=== PATIENT | female | born 1950 | race Hispanic/Latino ===

== ENCOUNTER 2018-06-14 20:41 | Emergency (ER) | payer MEDICARE ==
[~2018-06-14] VITALS: Ht 144.8 cm; Wt 78.5 kg
[2018-06-14] MEDS ORDERED: TYLENOL WITH C1 EACH PO (21:18)
[2018-06-14] MEDS ORDERED: ZESTRIL40 MG PO (21:18)
[2018-06-14] MEDS ORDERED: LEVOTHYROXINE75 MCG PO (21:18)
[2018-06-14] MEDS ORDERED: NAPROXEN250 MG PO (21:18)
[2018-06-14] MEDS ORDERED: MECLIZINE HCL12.5 MG PO (21:18)
[2018-06-14] MEDS ORDERED: SODIUM CHLORIDE 0.9% 1000ML 1,000 ML IV STA (21:27)
[2018-06-14] MEDS ORDERED: ONDANSETRON HCL INJ 2 MG/ML VIAL IV STA (21:27)
[2018-06-14] MEDS ORDERED: MECLIZINE HCL 12.5 MG TAB PO ONE (21:30)
[2018-06-14 21:52] LABS: BASOPHILS # (AUTO) 0.1 (0.0-0.1); BASOPHILS % 0.5 % (0.0-1.0); EOSINOPHILS # (AUTO) 0.1 (0.0-0.4); EOSINOPHILS % 0.7 % (0.0-6.0); HEMATOCRIT 40.5 % (34.2-44.1); HEMOGLOBIN 13.9 g/dL (12.0-16.0); LYMPHOCYTES # (AUTO) 1.4 (1.0-3.2); LYMPHOCYTES % 12.2 % (18.0-39.1); MEAN CORPUSCULAR HEMOGLOBIN 28.7 pg (28-32); MEAN CORPUSCULAR HGB CONC 34.3 g/dL (31-35); MEAN CORPUSCULAR VOLUME 83.7 fL (81-99); MONOCYTES # (AUTO) 0.5 (0.2-0.8); MONOCYTES % 4.2 % (4.4-11.3); NEUTROPHILS # (AUTO) 9.1 (2.1-6.9); NEUTROPHILS % 81.9 % (38.7-80.0); PLATELET COUNT 333 x10e3/uL (140-360); RED BLOOD COUNT 4.84 x10e6/uL (3.6-5.1); RED CELL DISTRIBUTION WIDTH 12.8 % (11.7-14.4)
[2018-06-14 22:05] LABS: CLARITY,URINE CLEAR (CLEAR); COLOR,URINE YELLOW (YELLOW); LEUKOCYTE ESTERASE ,URINE NEGATIVE (NEGATIVE)
[2018-06-14 22:06] LABS: BILIRUBIN,URINE NEGATIVE (NEGATIVE); KETONES,URINE TRACE (NEGATIVE); NITRITE,URINE NEGATIVE (NEGATIVE); PROTEIN,URINE DIPSTICK 2+ (NEGATIVE); URINE UROBILINOGEN 0.2 mg/dL (0.2 - 1)
[2018-06-14 22:06] LABS: ALANINE AMINOTRANSFERASE 21 IU/L (0-55); ALBUMIN 4.1 g/dL (3.5-5.0); ALKALINE PHOSPHATASE 84 IU/L (40-150); ANION GAP 13.2 mmol/L (8-16); BLOOD UREA NITROGEN 10 mg/dL (7-26); BUN/CREATININE RATIO 16 (6-25); CALCIUM 10.8 mg/dL (8.4-10.2); CARBON DIOXIDE 29 mmol/L (22-29); CHLORIDE 103 mmol/L (98-107); CREATININE, SERUM 0.63 mg/dL (0.57-1.11); EST GLOMERULAR FILTRATION RATE > 60 ML/MIN (60-); GLUCOSE 132 mg/dL (74-118); MAGNESIUM 1.8 MG/DL (1.3-2.1); POTASSIUM 4.2 mmol/L (3.5-5.1); SODIUM 141 mmol/L (136-145)
[2018-06-14 22:15] LABS: BACTERIA,URINE MANY /HPF; RBC,URINE 0-5 /HPF (0-5)
[2018-06-14 22:16] LABS: EPITHELIAL CELLS,URINE MODERATE /LPF; MUCUS,URINE MANY (RARE)
--- NOTE | 2018-06-14 23:01 | Diagnostic Imaging Report ---
Examination: CT head without contrast Clinical Indication: Dizziness; nausea. Technique: Transaxial noncontrast images from the skull base through the vertex were obtained. Sagittal and coronal reformatted images were done. Dose modulation, iterative reconstruction, and/or weight based adjustment of the mA/kV was utilized to reduce the radiation dose to as low as reasonably achievable. Comparison: None. Findings: Scalp: No abnormalities. Bones: Intact. No fractures. No blastic or lytic lesions. Brain sulci: Appropriate for patient's age. Ventricles: Normal in size and configuration. No hydrocephalus. Extra-axial space: No abnormalities. Parenchyma: No abnormal densities. No masses, hemorrhage, or acute or chronic cortical based vascular insults. Suprasellar region: No abnormalities. Craniocervical junction: The foramen magnum is patent. No Chiari one malformation. Incidental findings: Near complete opacification of the partially visualized bilateral maxillary sinuses Complete opacification do the bilateral ethmoid air cells and bilateral frontal and right sphenoid sinuses. Partially opacified left sphenoid sinus. Impression: 1. No acute intracranial abnormality. 2. Bilateral paranasal sinus inflammatory changes, as above. Signed by: Dr. Florence Dai M.D. on 06/14/2018 10:57 PM
== END 2018-06-14 23:39 | disposition home or self-care (01) ==
LOC: ER 20:41
DX: H81.10 Benign paroxysmal vertigo, unspecified ear (principal); R42 Dizziness and giddiness
CPT/HCPCS: 36415; 70450; 80053; 81001; 83735; 85025; 87086; 99284; J2405; J7030

== ENCOUNTER 2018-06-17 20:53 | Emergency (ER) | payer MEDICARE ==
[~2018-06-17] VITALS: Ht 144.8 cm; Wt 78.5 kg
[~2018-06-17 20:53] MED LIST: LEVOTHYROXINE75 MCG PO; MECLIZINE HCL12.5 MG PO; NAPROXEN250 MG PO; TYLENOL WITH C1 EACH PO; ZESTRIL40 MG PO
--- OUTSIDE RECORDS SUMMARY | 2018-06-22 13:14 | XMS REPORT ---
Author Author [facility] Address Unknown Phone Unavailable Care Team Providers Care Delphi Programmer Name Role Phone Luzma MUSTAFA Unavailable Unavailable Problems This patient has no known problems. Allergies, Adverse Reactions, Alerts This patient has no known allergies or adverse reactions. Medications This patient has no known medications. Encounters Start Date/Time End Date/Time Encounter Type Admission Type Attending [facility] Care Facility Care Department Encounter ID 2017-11-27 01:17:33 2017-11-27 01:17:33 Emergency [facility] [id number] 2017-11-27 00:09:59 2017-11-27 00:09:59 Emergency [facility] [id number] 2017-07-18 16:24:34 2017-07-18 16:24:34 Outpatient [facility] [id number] Results Test Description Test Time Test Comments Text Results Atomic Results Result Comments CT BRAIN WO 2018-06-14 22:49:00 [place] [address] Patient Name: RADHA TAN MR #: [id number] : 1950 Age/Sex: 67/F Req #: [id number] Adm Physician: Ordered by: PAULETTE MUSTAFA MD Report #: [id number] Location: ER Room/Bed: Procedure: [id number] CT/CT BRAIN WO Exam Date: 06/14/18 Exam Time: 2213 REPORT STATUS: Signed Examination: CT head without contrast Clinical Indication: Dizziness; nausea. Technique: Transaxial noncontrast images from the skull base through the vertex were obtained. Sagittal and coronal reformatted images were done. Dose modulation, iterative reconstruction, and/or weight based adjustment of the mA/kV was utilized to reduce the radiation dose to as low as reasonably achievable. Comparison: None. Findings: Scalp: No abnormalities. Bones: Intact. No fractures. No blastic or lytic lesions. Brain sulci: Appropriate for patient's age. Ventricles: Normal in size and configuration. No hydrocephalus. Extra-axial space: No abnormalities. Parenchyma: No abnormal densities. No masses, hemorrhage, or acute or chronic cortical based vascular insults. Suprasellar region: No abnormalities. Craniocervical junction: The foramen magnum is patent. No Chiari one malformation. Incidental findings: Near complete opacification of the partially visualized bilateral maxillary sinuses Complete opacification do the bilateral ethmoid air cells and bilateral frontal and right sphenoid sinuses. Partially opacified left sphenoid sinus. Impression: 1. No acute intracranial abnormality. 2. Bilateral paranasal sinus inflammatory changes, as above. Signed by: Dr. Florence Dai M.D. on 06/14/2018 10:57 PM Dictated By: FLORENCE BAUTISTA MD 56 Transcribed By: KELI on 06/14/182256 COPY TO: PAULETTE MUSTAFA MD
--- OUTSIDE RECORDS SUMMARY | 2018-06-22 13:14 | XMS REPORT | Clinical Summary ---
Author Author [facility] Organization [facility] Address Unknown Phone Unavailable Care Team Providers Care Screening Nurse Name Role Phone PCP Unavailable Allergies Active Allergy Reactions Severity Noted Date Comments No Known Allergies 01/20/2013 Current Medications Prescription Sig. Disp. Refills Start End Date Status Date sodium chloride (SALINE Use 2 Sprays in each 30 mL 5 12/09/19 Active NASAL SPRAY) 0.65 % nasal nostril as needed for 14 sprayIndications: Nasal Congestion. polyp, History of sinus surgery, Nasal congestion famotidine (PEPCID) 20 mg Take 1 tablet by mouth 2 60 tablet 3 05/02/20 Active tabletIndications: times daily. 14 Abdominal pain levothyroxine (SYNTHROID) Take 1 tablet by mouth 90 tablet 1 05/02/20 Active 75 mcg tabletIndications: daily. 14 Hypothyroidism Mometasone 50 Inhale 2 rocios por cada 17 g 3 05/26/20 Active mcg/actuation nasal fosa nasal vipul vez al dixon 14 sprayIndications: Nasal si lo necesita para polyp, Post-nasal drip, congestion nasal. Autosub Nasal obstruction, per Dr. Gloria Chronic sinusitis codeine-guaiFENesin Take 5 mL by mouth 3 120 mL 0 09/16/19 Active (CHERATUSSIN AC) 10-100 times daily as needed for 15 mg/5 mL syrupIndications: Cough. Acute bronchitis cetirizine (ZYRTEC) 10 mg Take 1 tablet by mouth 30 tablet 0 07/18/20 Active tabletIndications: daily. 17 Allergic conjunctivitis of left eye Naphazoline-Pheniramine Instill 1 Drop in left 15 mL 0 07/18/20 07/28/20 (NAPHCON-A) 0.025-0.3 % eye 4 times daily as 17 17 ophthalmic needed for up to 10 days solutionIndications: for Allergies or Itching. Allergic conjunctivitis of left eye Active Problems Problem Noted Date Fatigue 11/27/2017 Chronic non-seasonal allergic rhinitis 07/18/2017 Obesity, Class I, BMI 30-34.9 07/18/2017 Atypical facial pain 05/25/2013 Nasal polyps 05/25/2013 Nasal obstruction 05/25/2013 Chronic sinusitis 05/25/2013 Rectal exam 03/03/2013 Hypothyroidism Hypertension Resolved Problems Problem Noted Date Resolved Date Allergic rhinitis 05/25/2013 07/18/2017 Post-nasal drip 05/25/2013 07/18/2017 Well woman exam with routine gynecological exam 03/03/2013 07/18/2017 Nasal polyp 02/03/2013 07/18/2017 Encounters Date Type Specialty Care Team Description 11/27/2017 Emergency Emergency Medicine Johan Lovelace MD Dizziness (Primary Dx); Chronic fatigue 07/18/2017 Office Visit Family Practice Juliana Lorenzo MD Allergic conjunctivitis of left eye (Primary Dx) after 06/16/2017 Immunizations Name Dates Previously Given Next Due Influenza Vaccine 07/18/2017 (Deferred: Patient Refused), 09/16/2014 (Deferred: Contraindication) Tdap Tetanus, diphtheria, 01/20/2013 acellular pertussis Vaccine Family History Medical History Relation Name Comments Unknown Fam Hx Relation Name Status Comments Father Mother Social History Tobacco Use Types Packs/Day Years Used Date Never Smoker Tobacco Cessation: Counseling Given: No Alcohol Use Drinks/Week oz/Week Comments No Sex Assigned at Date Recorded Not on file Last Filed Vital Signs Vital Sign Reading Time Taken Blood Pressure 112/68 11/27/2017 3:30 AM CDT Pulse 81 11/27/2017 3:30 AM CDT Temperature 36.6 C (97.8 F) 11/27/2017 3:30 AM CDT Respiratory Rate 22 11/27/2017 3:30 AM CDT Oxygen Saturation 97% 11/27/2017 3:30 AM CDT Inhaled Oxygen - - Concentration Weight 78.5 kg (173 lb) 11/26/2017 9:38 PM CDT Height 149.9 cm (4' 11") 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 UA CHEMISTRIES STAT 11/27/2017 Results for this 1:15 AM CDT procedure are in the results section. 12 LEAD EKG Routine 11/27/2017 Results for this 12:57 AM CDT procedure are in the results section. BMP POC Routine 11/27/2017 Results for this 12:41 AM CDT procedure are in the results section. after 06/16/2017 Results * XRAY CHEST 2 VIEWS (11/27/2017 1:25 AM) Impressions Performed At IMPRESSION:No acute cardiopulmonary abnormality. SMS This [facility] radiology report is a preliminary resident dictation until finalized by an attending.Changes to this preliminary report may occur in an additional preliminary or finalized version. Dictated By: Emmett Miller MD, 11/27/2017 1:32 AM I have reviewed the study and agree with the findings in this report. Signed By: Semaj Morrison MD, 11/27/2017 1:47 AM Narrative Performed At EXAM: XR CHEST 2 VIEWS [facility] DATE: 11/27/2017 1:27 AM INDICATION: looking for pneumonia; atypical symptoms. Chronic fatigue COMPARISON: None. TECHNIQUE: PA and lateral chest radiographs FINDINGS: Lines, tubes and hardware: None. Lungs and pleura: The lungs are underinflated, resulting in vascular crowding. There is bibasilar subsegmental atelectasis. No focal consolidations are seen. No pleural effusion or pneumothorax present. Heart and mediastinum: The heart size is normal. The mediastinal contours are normal. Bones: No acute bony abnormality is identified. Anterior endplate osteophytes are seen throughout the thoracic spine. Procedure Note Interface, Rad/Mammog In - 11/27/2017 1:52 AM CDT EXAM: XR CHEST 2 VIEWS DATE: 11/27/2017 1:27 AM INDICATION: looking for pneumonia; atypical symptoms. Chronic fatigue COMPARISON: None. TECHNIQUE: PA and lateral chest radiographs FINDINGS: Lines, tubes and hardware: None. Lungs and pleura: The lungs are underinflated, resulting in vascular crowding. There is bibasilar subsegmental atelectasis. No focal consolidations are seen. No pleural effusion or pneumothorax present. Heart and mediastinum: The heart size is normal. The mediastinal contours are normal. Bones: No acute bony abnormality is identified. Anterior endplate osteophytes are seen throughout the thoracic spine. IMPRESSION IMPRESSION: No acute cardiopulmonary abnormality. This [facility] radiology report is a preliminary resident dictation until finalized by an attending. Changes to this preliminary report may occur in an additional preliminary or finalized version. Dictated By: Emmett Miller MD, 11/27/2017 1:32 AM I have reviewed the study and agree with the findings in this report. Signed By: Semaj Morrison MD, 11/27/2017 1:47 AM Performing Organization Address City/[facility] Phone Number SMS * UA CHEMISTRIES (11/27/2017 1:15 AM) Color Yellow [facility] Clarity Clear [facility] Spec [place] 1.012 1.001 - 1.035 [facility] pH 6.0 5 - 8 [facility] Protein Negative NEG [facility] Glucose Negative NEG [facility] Ketone Negative NEG [facility] Bilirubin Negative NEG [facility] Nitrate Negative NEG [facility] Urobilinogen <1.0 0.2 - 1.0 EU/dL [facility] Leukocyte Negative NEG [facility] Blood Negative NEG [facility] Specimen Urine Performing Organization Address [facility] Phone Number MISYS [facility] * 12 LEAD EKG (11/27/2017 12:57 AM) 12 LEAD EKG FOR [facility] Test Date:2017-11-27 Pat Name: GRACIELA WHALEY Department: Room: Gender: F Managed Care Provider: [id number] :1950-1 Requested By: Order Number: [id number] MD: Robbie Cononr Measurements Intervals [place] Rate: 90 P:33 SC: 182 QRS: -20 QRSD: 101 T: 41 QT: 338 QTc:414 Interpretive Statements SINUS RHYTHM NONSPECIFIC T-WAVE ABNORMALITY POOR R WAVE PROGRESSION ABNORMAL ECG Electronically Signed On 12-01-17 17:56:46 CDT by Robbie Connor Performing Organization Address City/State/Zipcode Phone Number SMS * BMP POC (11/27/2017 12:41 AM) CO2 POC 29Comment: Physician Notified 21 - 32 mmol/L [facility] Chloride POC 100 98 - 107 mmol/L [facility] Potassium POC 3.6 3.50 - 5.10 mmol/L [facility] Sodium POC 141 136 - 145 mmol/L [facility] Glucose POC 169 (H) 74 - 106 mg/dL [facility] Urea Nitrogen POC 9 7 - 18 mg/dL [facility] Creatinine POC 0.5 (L) 0.6 - 1.3 mg/dL [facility] Calcium Ionized POC 1.19 1.15 - 1.29 mmol/L [facility] Hemoglobin POC 15.3 12.0 - 16.0 g/dL [facility] Hematocrit POC 45.0 37.0 - 47.0 % [facility] GFR, Estimated >60 mL/min/1.73 m2 [facility] GFR, Estim, Afr-Am >60 mL/min/1.73 m2 [facility] Performing Organization Address City/State/Zipcode Phone Number MISYS [facility] 1 after 06/16/2017
== END 2018-06-17 23:32 | disposition home or self-care (01) ==
LOC: ER 20:53
DX: R51 Headache (principal); J01.00 Acute maxillary sinusitis, unspecified; J01.30 Acute sphenoidal sinusitis, unspecified
CPT/HCPCS: 99282

== ENCOUNTER 2019-02-05 23:27 | Emergency (ER) | payer MEDICARE ==
[~2019-02-05] VITALS: Ht 144.8 cm; Wt 78.5 kg
[2019-02-06 01:03] LABS: BILIRUBIN,URINE NEGATIVE (NEGATIVE); CLARITY,URINE CLEAR (CLEAR); COLOR,URINE YELLOW (YELLOW); KETONES,URINE NEGATIVE (NEGATIVE); LEUKOCYTE ESTERASE ,URINE NEGATIVE (NEGATIVE); NITRITE,URINE NEGATIVE (NEGATIVE); PROTEIN,URINE DIPSTICK NEGATIVE (NEGATIVE); URINE UROBILINOGEN 0.2 mg/dL (0.2 - 1)
[2019-02-06 01:17] LABS: BACTERIA,URINE RARE /HPF; EPITHELIAL CELLS,URINE FEW /LPF; RBC,URINE 0-5 /HPF (0-5); WBC,URINE (MAN) 0-5 /HPF (0-5)
[2019-02-06 02:30] LABS: BASOPHILS # (AUTO) 0.1 (0.0-0.1); BASOPHILS % 0.5 % (0.0-1.0); EOSINOPHILS # (AUTO) 0.6 (0.0-0.4); EOSINOPHILS % 6.2 % (0.0-6.0); HEMATOCRIT 39.9 % (34.2-44.1); HEMOGLOBIN 13.4 g/dL (12.0-16.0); LYMPHOCYTES # (AUTO) 2.2 (1.0-3.2); LYMPHOCYTES % 22.8 % (18.0-39.1); MEAN CORPUSCULAR HEMOGLOBIN 28.6 pg (28-32); MEAN CORPUSCULAR HGB CONC 33.6 g/dL (31-35); MEAN CORPUSCULAR VOLUME 85.1 fL (81-99); MONOCYTES # (AUTO) 0.6 (0.2-0.8); MONOCYTES % 6.4 % (4.4-11.3); NEUTROPHILS # (AUTO) 6.2 (2.1-6.9); NEUTROPHILS % 63.8 % (38.7-80.0); PLATELET COUNT 355 x10e3/uL (140-360); RED BLOOD COUNT 4.69 x10e6/uL (3.6-5.1); RED CELL DISTRIBUTION WIDTH 12.9 % (11.7-14.4)
[2019-02-06 02:43] LABS: ANION GAP 11.8 mmol/L (8-16); BLOOD UREA NITROGEN 9 mg/dL (7-26); BUN/CREATININE RATIO 15 (6-25); CALCIUM 9.7 mg/dL (8.4-10.2); CARBON DIOXIDE 26 mmol/L (22-29); CHLORIDE 103 mmol/L (98-107); CREATINE KINASE 41 IU/L (29-168); CREATININE, SERUM 0.62 mg/dL (0.57-1.11); EST GLOMERULAR FILTRATION RATE > 60 ML/MIN (60-); GLUCOSE 99 mg/dL (74-118); POTASSIUM 3.8 mmol/L (3.5-5.1); SODIUM 137 mmol/L (136-145)
[2019-02-06 03:45] VITALS: BP 115/66
[2019-02-06] MEDS ORDERED: MECLIZINE HCL 12.5 MG TAB ONE (03:53)
[2019-02-06] MEDS ORDERED: MECLIZINE HCL 12.5 MG TAB PO ONE (04:00)
[2019-02-06 07:00] LABS: EOSINOPHILS % (MANUAL) 1 % (0-7); LYMPHOCYTES % (MANUAL) 22 % (19-48); MONOCYTES % (MANUAL) 5 % (3.4-9.0); NEUTROPHILS % (MANUAL) 70 % (40-74); PROMYELOCYTES % (MANUAL) 1 % (0-0)
== END 2019-02-06 04:00 | disposition home or self-care (01) ==
LOC: ER 23:27
DX: R42 Dizziness and giddiness (principal); I10 Essential (primary) hypertension; E11.9 Type 2 diabetes mellitus without complications; E78.00 Pure hypercholesterolemia, unspecified
CPT/HCPCS: 36415; 80048; 81001; 82550; 82553; 84484; 85025; 99283; J8597

== ENCOUNTER 2019-03-13 15:07 | Emergency (ER) | payer MEDICARE ==
[~2019-03-13] VITALS: Ht 144.8 cm; Wt 78.5 kg
[2019-03-13] MEDS ORDERED: MECLIZINE HCL 12.5 MG TAB PO ONE (16:00)
--- NOTE | 2019-03-13 16:20 | Diagnostic Imaging Report ---
History: Dizziness Comparison studies: Head CT on 06/14/2018 Technique: Axial images were obtained from the skull base to the vertex. Coronal and sagittal reconstructions obtained from the axial data. Dose modulation, iterative reconstruction, and/or weight based adjustment of the mA/kV was utilized to reduce the radiation dose to as low as reasonably achievable. Intravenous contrast: None Findings: Scalp/skull: No abnormalities. No fractures, blastic or lytic lesions. Extra-axial spaces: No masses. No fluid collections. Brain sulci: Appropriate for age. Ventricles: Normal in size and configuration. No hydrocephalus. Parenchyma: No abnormal densities. No masses, hemorrhage, acute or chronic cortical vascular insults. Sellar/suprasellar region: No abnormalities Craniocervical junction: Patent foramen magnum. No Chiari one malformation. Incidental findings: Diffuse inflammatory opacification of frontal, ethmoid and sphenoid sinuses and the apices of the maxillary sinuses. The nasofrontal and sphenoethmoidal recesses are opacified bilaterally. The ostiomeatal units are outside of the field of view. IMPRESSION: 1. No intracranial abnormalities. 2. No changes compared to the head CT on 06/14/2018 3. Persistent diffuse inflammatory changes throughout the paranasal sinuses. Signed by: Dr. Ezekiel Mckee M.D. on 03/13/2019 4:17 PM
[2019-03-13 16:54] LABS: BASOPHILS # (AUTO) 0.1 (0.0-0.1); BASOPHILS % 0.6 % (0.0-1.0); EOSINOPHILS # (AUTO) 0.6 (0.0-0.4); EOSINOPHILS % 6.3 % (0.0-6.0); HEMATOCRIT 41.8 % (34.2-44.1); LYMPHOCYTES # (AUTO) 1.8 (1.0-3.2); LYMPHOCYTES % 18.8 % (18.0-39.1); MEAN CORPUSCULAR HEMOGLOBIN 28.6 pg (28-32); MEAN CORPUSCULAR HGB CONC 33.5 g/dL (31-35); MEAN CORPUSCULAR VOLUME 85.5 fL (81-99); MONOCYTES # (AUTO) 0.6 (0.2-0.8); MONOCYTES % 6.2 % (4.4-11.3); NEUTROPHILS # (AUTO) 6.6 (2.1-6.9); NEUTROPHILS % 67.8 % (38.7-80.0); PLATELET COUNT 373 x10e3/uL (140-360); RED BLOOD COUNT 4.89 x10e6/uL (3.6-5.1); RED CELL DISTRIBUTION WIDTH 12.8 % (11.7-14.4)
[2019-03-13 17:09] LABS: ALANINE AMINOTRANSFERASE 15 IU/L (0-55); ALBUMIN 3.9 g/dL (3.5-5.0); ALBUMIN/GLOBULIN RATIO 0.9 (0.8-2.0); ALKALINE PHOSPHATASE 93 IU/L (40-150); BLOOD UREA NITROGEN 9 mg/dL (7-26); BUN/CREATININE RATIO 14 (6-25); CALCIUM 9.9 mg/dL (8.4-10.2); CARBON DIOXIDE 27 mmol/L (22-29); CHLORIDE 104 mmol/L (98-107); CREATINE KINASE 51 IU/L (29-168); CREATININE, SERUM 0.66 mg/dL (0.57-1.11); EST GLOMERULAR FILTRATION RATE > 60 ML/MIN (60-); GLUCOSE 124 mg/dL (74-118); SODIUM 141 mmol/L (136-145)
--- NOTE | 2019-03-13 17:24 | Diagnostic Imaging Report ---
EXAMINATION: CHEST SINGLE (PORTABLE) INDICATION: ^ERMD ORDER ^[id number] ^1530 ^Y COMPARISON: None FINDINGS: AP view TUBES and LINES: None. LUNGS: Lungs are well inflated. Mild reticular opacities in both lung bases suggestive of scarring. There is no evidence of pneumonia or pulmonary edema. PLEURA: No pleural effusion or pneumothorax. HEART AND MEDIASTINUM: The cardiomediastinal silhouette is unremarkable.. BONES AND SOFT TISSUES: No acute osseous lesion. Soft tissues are unremarkable. UPPER ABDOMEN: No free air under the diaphragm. IMPRESSION: No acute thoracic abnormality. Bibasilar scarring. Signed by: Dr. Angela Rowley M.D. on 03/13/2019 5:21 PM
[2019-03-13 17:54] LABS: BILIRUBIN,URINE NEGATIVE (NEGATIVE); CLARITY,URINE CLEAR (CLEAR); COLOR,URINE YELLOW (YELLOW); KETONES,URINE NEGATIVE (NEGATIVE); LEUKOCYTE ESTERASE ,URINE MODERATE (NEGATIVE); NITRITE,URINE NEGATIVE (NEGATIVE); PROTEIN,URINE DIPSTICK NEGATIVE (NEGATIVE); URINE UROBILINOGEN 0.2 mg/dL (0.2 - 1)
[2019-03-13 19:13] LABS: BACTERIA,URINE FEW /HPF; EPITHELIAL CELLS,URINE MODERATE /LPF; RBC,URINE 0-5 /HPF (0-5); WBC,URINE (MAN) 0-5 /HPF (0-5)
[2019-03-13] MEDS ORDERED: SODIUM CHLORIDE 0.9% 1000ML 1,000 ML IV SCH (20:00)
[2019-03-13 20:44] VITALS: BP 137/70
== END 2019-03-13 20:48 | disposition home or self-care (01) ==
LOC: ER 15:07
DX: H81.399 Other peripheral vertigo, unspecified ear (principal); J01.00 Acute maxillary sinusitis, unspecified; J01.20 Acute ethmoidal sinusitis, unspecified; J01.10 Acute frontal sinusitis, unspecified; J01.30 Acute sphenoidal sinusitis, unspecified; I10 Essential (primary) hypertension; E11.9 Type 2 diabetes mellitus without complications; E07.9 Disorder of thyroid, unspecified
CPT/HCPCS: 36415; 70450; 71045; 80053; 81001; 82550; 82553; 84484; 85025; 93005; 99284; J8597

== ENCOUNTER 2020-09-07 14:32 | Emergency (ER) | payer MEDICARE ==
[~2020-09-07] VITALS: Ht 144.8 cm; Wt 78.5 kg
[2020-09-07] MEDS ORDERED: ACETAMINOPHEN 325 MG TAB PO NR (15:45)
[2020-09-07] MEDS ORDERED: IBUPROFEN 600 MG TAB PO STA (17:51)
== END 2020-09-07 18:46 | disposition home or self-care (01) ==
LOC: ER 14:49
DX: U07.1 COVID-19 (principal); J18.9 Pneumonia, unspecified organism; R50.9 Fever, unspecified; R05 Cough; R53.81 Other malaise; M54.2 Cervicalgia; M54.9 Dorsalgia, unspecified; I10 Essential (primary) hypertension; E78.5 Hyperlipidemia, unspecified; E03.9 Hypothyroidism, unspecified
CPT/HCPCS: 71045; 87400; 99284; U0002

== ENCOUNTER 2020-09-12 00:08 | Inpatient (IN) | payer MEDICARE ==
[~2020-09-12] VITALS: Ht 162.6 cm; Wt 86.7 kg
[2020-09-12] MEDS ORDERED: DEXAMETHASONE SOD PHOS 10 MG/1 ML VIAL IV ONE (00:30)
[2020-09-12 00:32] LABS: BASOPHILS # (AUTO) 0.1 (0.0-0.1); BASOPHILS % 0.2 % (0.0-1.0); HEMOGLOBIN 12.2 g/dL (12.0-16.0); LYMPHOCYTES # (AUTO) 2.7 (1.0-3.2); LYMPHOCYTES % 13.6 % (18.0-39.1); MEAN CORPUSCULAR HGB CONC 33.9 g/dL (31-35); MEAN CORPUSCULAR VOLUME 82.6 fL (81-99); MONOCYTES % 4.7 % (4.4-11.3); NEUTROPHILS # (AUTO) 15.7 (2.1-6.9); PLATELET COUNT 463 x10e3/uL (140-360); RED BLOOD COUNT 4.36 x10e6/uL (3.6-5.1); RED CELL DISTRIBUTION WIDTH 12.9 % (11.7-14.4)
[2020-09-12 00:54] LABS: ALANINE AMINOTRANSFERASE 42 IU/L (0-55); ALBUMIN 2.8 g/dL (3.5-5.0); ALBUMIN/GLOBULIN RATIO 0.6 (0.8-2.0); ALKALINE PHOSPHATASE 115 IU/L (40-150); ANION GAP 24.8 mmol/L (8-16); BLOOD UREA NITROGEN 18 mg/dL (7-26); BUN/CREATININE RATIO 23 (6-25); CALCIUM 8.3 mg/dL (8.4-10.2); CARBON DIOXIDE 13 mmol/L (22-29); CHLORIDE 88 mmol/L (98-107); CREATININE, SERUM 0.79 mg/dL (0.57-1.11); EST GLOMERULAR FILTRATION RATE > 60 ML/MIN (60-); GLUCOSE 222 mg/dL (74-118); POTASSIUM 3.8 mmol/L (3.5-5.1); SODIUM 122 mmol/L (136-145)
[2020-09-12] MEDS ORDERED: CEFTRIAXONE SOD 1 GM 50 ML IV ONE ×2 (01:15→18:03)
[2020-09-12] MEDS ORDERED: AZITHROMYCIN 500MG/NS 250 ML 250 ML IV STA (01:15)
[2020-09-12] MEDS ORDERED: SODIUM CHLORIDE 0.9% 500ML 500 ML IV STA (01:19)
[2020-09-12] MEDS ORDERED: IOPAMIDOL 370 MG/ML 200 ML INFUS..BTL INJ ONE ×2 (01:36→04:15)
[2020-09-12] MEDS ORDERED: SODIUM CHLORIDE 0.9% 50ML 50 ML ONE (01:37)
[2020-09-12 02:51] LABS: ABG HCO3 20 mmol/L (22-26); ABG PCO2 30 mmHg (35-45); ABG PH 7.42 (7.35-7.45); ABG PO2 68 mmHg (80-105); ABG TCO2 21
[2020-09-12 07:25] LABS: BASOPHILS % 0.2 % (0.0-1.0); EOSINOPHILS % 0.2 % (0.0-6.0); HEMOGLOBIN 11.8 g/dL (12.0-16.0); LYMPHOCYTES # (AUTO) 1.1 (1.0-3.2); LYMPHOCYTES % 6.5 % (18.0-39.1); MEAN CORPUSCULAR HEMOGLOBIN 28.2 pg (28-32); MEAN CORPUSCULAR HGB CONC 34.7 g/dL (31-35); MEAN CORPUSCULAR VOLUME 81.3 fL (81-99); MONOCYTES # (AUTO) 0.7 (0.2-0.8); NEUTROPHILS # (AUTO) 15.3 (2.1-6.9); NEUTROPHILS % 86.8 % (38.7-80.0); PLATELET COUNT 357 x10e3/uL (140-360); RED BLOOD COUNT 4.18 x10e6/uL (3.6-5.1); RED CELL DISTRIBUTION WIDTH 12.8 % (11.7-14.4)
[2020-09-12 07:45] LABS: ALANINE AMINOTRANSFERASE 38 IU/L (0-55); ALBUMIN 2.7 g/dL (3.5-5.0); ALBUMIN/GLOBULIN RATIO 0.6 (0.8-2.0); ALKALINE PHOSPHATASE 113 IU/L (40-150); ANION GAP 14.1 mmol/L (8-16); BLOOD UREA NITROGEN 18 mg/dL (7-26); BUN/CREATININE RATIO 29 (6-25); CALCIUM 7.9 mg/dL (8.4-10.2); CARBON DIOXIDE 22 mmol/L (22-29); CHLORIDE 90 mmol/L (98-107); CREATINE KINASE 217 IU/L (29-168); CREATININE, SERUM 0.62 mg/dL (0.57-1.11); EST GLOMERULAR FILTRATION RATE > 60 ML/MIN (60-); GLUCOSE 136 mg/dL (74-118); POTASSIUM 4.1 mmol/L (3.5-5.1); SODIUM 122 mmol/L (136-145)
[2020-09-12] MEDS ORDERED: GUAIFENESIN 600MG/DEXTROMETHORPHAN 30MG TABSR PO SCH (09:00)
[2020-09-12] MEDS ORDERED: ONDANSETRON HCL INJ 2MG/ML 2ML 2 MG/ML VIAL IV PRN (18:00)
[2020-09-12] MEDS: ENOXAPARIN SOD INJ 40 MG/0.4 ML SYR SC SCH (18:25)
[2020-09-12] MEDS: CEFTRIAXONE SOD 1 GM 50 ML IV SCH (18:25)
[2020-09-12] MEDS ORDERED: REMDESIVIR 200MG/NS 100ML 200 MG in SODIUM CHLORIDE 0.9% 100 ML 100 ML IV ONE (19:30)
[2020-09-12] MEDS ORDERED: ZOLPIDEM TARTRATE 5 MG TAB PO PRN (21:00)
[2020-09-12 22:40] VITALS: BP 152/97
[2020-09-13] VITALS (24 sets, daily range): BP systolic 87–131; BP diastolic 34–93
[2020-09-13] MEDS: AZITHROMYCIN 500MG/NS 250 ML 250 ML IV SCH ×2 (00:05→23:15)
[2020-09-13] MEDS ORDERED: DEXMEDETOMIDINE HCL 200 MCG in SODIUM CHLORIDE 0.9% 50ML 48 ML IV PRN (01:00)
[2020-09-13] MEDS ORDERED: DEXMEDETOMIDINE 200MCG/NS 50ML 50 ML IV ONE (01:17)
[2020-09-13] MEDS ORDERED: FENTANYL 2000MCG/NS 250 250 ML ONE (02:15)
[2020-09-13] MEDS ORDERED: MIDAZOLAM HCL 5MG/ML 10ML VIAL 100 ML IV ONE ×2 (02:15→22:56)
[2020-09-13] MEDS ORDERED: SODIUM CHLORIDE 0.9% 1000ML 1,000 ML ONE (02:33)
[2020-09-13] MEDS ORDERED: ROCURONIUM BROMIDE 1,250 MG in SODIUM CHLORIDE 0.9% 250ML 125 ML IV PRN (03:00)
[2020-09-13 04:56] LABS: BASOPHILS % 0.2 % (0.0-1.0); HEMATOCRIT 31.7 % (34.2-44.1); HEMOGLOBIN 10.8 g/dL (12.0-16.0); LYMPHOCYTES # (AUTO) 0.6 (1.0-3.2); LYMPHOCYTES % 3.9 % (18.0-39.1); MEAN CORPUSCULAR HEMOGLOBIN 28.4 pg (28-32); MEAN CORPUSCULAR HGB CONC 34.1 g/dL (31-35); MEAN CORPUSCULAR VOLUME 83.4 fL (81-99); MONOCYTES # (AUTO) 0.7 (0.2-0.8); MONOCYTES % 4.7 % (4.4-11.3); NEUTROPHILS # (AUTO) 12.6 (2.1-6.9); NEUTROPHILS % 88.5 % (38.7-80.0); PLATELET COUNT 303 x10e3/uL (140-360); RED CELL DISTRIBUTION WIDTH 12.7 % (11.7-14.4)
[2020-09-13 05:21] LABS: ALANINE AMINOTRANSFERASE 32 IU/L (0-55); ALBUMIN 2.2 g/dL (3.5-5.0); ALBUMIN/GLOBULIN RATIO 0.6 (0.8-2.0); ALKALINE PHOSPHATASE 109 IU/L (40-150); BLOOD UREA NITROGEN 14 mg/dL (7-26); BUN/CREATININE RATIO 23 (6-25); CALCIUM 7.6 mg/dL (8.4-10.2); CARBON DIOXIDE 24 mmol/L (22-29); CHLORIDE 100 mmol/L (98-107); CREATININE, SERUM 0.62 mg/dL (0.57-1.11); EST GLOMERULAR FILTRATION RATE > 60 ML/MIN (60-); GLUCOSE 147 mg/dL (74-118); SODIUM 135 mmol/L (136-145)
[2020-09-13] MEDS: LEVOTHYROXINE SODIUM 75 MCG TAB PO SCH (06:00)
[2020-09-13] MEDS ORDERED: DEXAMETHASONE SOD PHOS 10 MG/1 ML VIAL IV SCH (09:00)
[2020-09-13] MEDS: DEXAMETHASONE SOD PHOS INJ 4 MG/ML VIAL IV SCH (09:27)
[2020-09-13] MEDS: ZINC SULFATE 220 MG CAP PO SCH (09:27)
[2020-09-13] MEDS: ASCORBIC ACID 500 MG TAB PO SCH ×2 (09:27→17:42)
[2020-09-13] MEDS: MIDAZOLAM HCL 50 MG in SODIUM CHLORIDE 0.9% 100 ML 90 ML IV PRN ×2 (12:00→23:15)
[2020-09-13] MEDS: FENTANYL CITRATE INJ 2,000 MCG in SODIUM CHLORIDE 0.9% 250ML 210 ML IV PRN (12:00)
[2020-09-13] MEDS ORDERED: VECURONIUM BROMIDE FOR INJ 20 MG VIAL ONE ×2 (15:31→17:05)
[2020-09-13 16:01] LABS: ABG HCO3 20 mmol/L (22-26); ABG PCO2 33 mmHg (35-45); ABG PH 7.39 (7.35-7.45); ABG PO2 184 mmHg (80-105); ABG TCO2 21
[2020-09-13] MEDS ORDERED: WATER STERILE 10 ML VIAL ONE (17:05)
[2020-09-13] MEDS ORDERED: ETOMIDATE 2 MG/ML 10 ML INJ IV ONE (17:05)
[2020-09-13] MEDS ORDERED: MIDAZOLAM HCL 2 MG/2 ML VIAL ONE (17:05)
[2020-09-13] MEDS ORDERED: SUCCINYLCHOLINE CHLORIDE 20 MG/ML 10ML VIAL ONE (17:05)
[2020-09-13] MEDS: ENOXAPARIN SOD INJ 40 MG/0.4 ML SYR SC SCH (17:34)
[2020-09-13] MEDS ORDERED: HEPARIN SOD/SOD CHLORIDE 1,000 ML ONE (20:04)
[2020-09-13] MEDS ORDERED: HEPARIN SOD (PORCINE) 1000 UNIT/ML SDV ONE (20:06)
[2020-09-13] MEDS: REMDESIVIR 100MG/NS 100ML 100 MG IV SCH (20:27)
[2020-09-13] MEDS: CEFTRIAXONE SOD 1 GM 50 ML IV SCH (23:15)
[2020-09-13] MEDS: ACETAMINOPHEN 325 MG TAB PO PRN (23:28)
[2020-09-14] VITALS (45 sets, daily range): BP systolic 76–122; BP diastolic 44–62
[2020-09-14] MEDS ORDERED: VANCOMYCIN 1GM/NS 250 ML 250 ML IV ONE (02:15)
[2020-09-14] MEDS ORDERED: SODIUM CHLORIDE 0.9% 500ML 500 ML IV ONE (02:15)
[2020-09-14] MEDS: NOREPINEPHRINE INJ 4MG/4ML 8 MG in DEXTROSE 5% 250ML 250 ML IV SCH (02:30)
[2020-09-14 04:54] LABS: BASOPHILS % 0.2 % (0.0-1.0); EOSINOPHILS % 0.2 % (0.0-6.0); HEMATOCRIT 29.6 % (34.2-44.1); HEMOGLOBIN 9.8 g/dL (12.0-16.0); LYMPHOCYTES # (AUTO) 0.8 (1.0-3.2); LYMPHOCYTES % 6.5 % (18.0-39.1); MEAN CORPUSCULAR HEMOGLOBIN 28.5 pg (28-32); MEAN CORPUSCULAR HGB CONC 33.1 g/dL (31-35); MONOCYTES # (AUTO) 0.3 (0.2-0.8); MONOCYTES % 2.2 % (4.4-11.3); NEUTROPHILS # (AUTO) 11.2 (2.1-6.9); NEUTROPHILS % 87.2 % (38.7-80.0); PLATELET COUNT 188 x10e3/uL (140-360); RED BLOOD COUNT 3.44 x10e6/uL (3.6-5.1); RED CELL DISTRIBUTION WIDTH 13.5 % (11.7-14.4)
[2020-09-14 05:04] LABS: INR 1.24; PROTHROMBIN TIME 16.4 seconds (11.9-14.5)
[2020-09-14 05:05] LABS: PARTIAL THROMBOPLASTIN TIME 32.4 seconds (23.8-35.5)
[2020-09-14 05:15] LABS: ALANINE AMINOTRANSFERASE 21 IU/L (0-55); ALBUMIN/GLOBULIN RATIO 0.5 (0.8-2.0); ALKALINE PHOSPHATASE 90 IU/L (40-150); ANION GAP 11.9 mmol/L (8-16); BLOOD UREA NITROGEN 26 mg/dL (7-26); BUN/CREATININE RATIO 41 (6-25); CALCIUM 7.2 mg/dL (8.4-10.2); CARBON DIOXIDE 25 mmol/L (22-29); CHLORIDE 103 mmol/L (98-107); CREATININE, SERUM 0.64 mg/dL (0.57-1.11); EST GLOMERULAR FILTRATION RATE > 60 ML/MIN (60-); GLUCOSE 157 mg/dL (74-118); POTASSIUM 3.9 mmol/L (3.5-5.1); SODIUM 136 mmol/L (136-145)
[2020-09-14] MEDS: MEROPENEM 1GM 100 ML IV SCH ×3 (06:00→22:34)
[2020-09-14] MEDS: LEVOTHYROXINE SODIUM 75 MCG TAB PO SCH (06:00)
[2020-09-14] MEDS ORDERED: FENTANYL 2000MCG/NS 250 250 ML ONE ×2 (06:31→14:21)
[2020-09-14 07:35] LABS: ABG HCO3 26 mmol/L (22-26); ABG PCO2 42 mmHg (35-45); ABG PH 7.39 (7.35-7.45); ABG PO2 82 mmHg (80-105); ABG TCO2 27
[2020-09-14] MEDS: ZINC SULFATE 220 MG CAP PO SCH (08:38)
[2020-09-14] MEDS: ASCORBIC ACID 500 MG TAB PO SCH ×2 (08:38→17:27)
[2020-09-14] MEDS: EYE LUBRICANT OPTH OINT 3.5GM TUBE OP SCH (08:38)
[2020-09-14] MEDS: DEXAMETHASONE SOD PHOS INJ 4 MG/ML VIAL IV SCH (08:38)
[2020-09-14] MEDS: MIDAZOLAM HCL 50 MG in SODIUM CHLORIDE 0.9% 100 ML 90 ML IV PRN (10:26)
[2020-09-14] MEDS: ACETAMINOPHEN 325 MG TAB PO PRN (14:20)
[2020-09-14] MEDS: FENTANYL CITRATE INJ 2,000 MCG in SODIUM CHLORIDE 0.9% 250ML 210 ML IV PRN (14:21)
[2020-09-14] MEDS: ENOXAPARIN SOD INJ 40 MG/0.4 ML SYR SC SCH (17:27)
[2020-09-14] MEDS: REMDESIVIR 100MG/NS 100ML 100 MG IV SCH (20:25)
[2020-09-14] MEDS: AZITHROMYCIN 500MG/NS 250 ML 250 ML IV SCH (22:35)
[2020-09-14] MEDS: FENTANYL 2000MCG/NS 250 250 ML IV PRN (23:18)
[2020-09-15] VITALS (23 sets, daily range): BP systolic 87–132; BP diastolic 42–59
[2020-09-15] MEDS: NOREPINEPHRINE INJ 4MG/4ML 8 MG in DEXTROSE 5% 250ML 250 ML IV SCH (02:46)
[2020-09-15] MEDS: MIDAZOLAM HCL 5MG/ML 10ML VIAL 100 ML IV PRN ×2 (05:31→20:30)
[2020-09-15] MEDS: LEVOTHYROXINE SODIUM 75 MCG TAB PO SCH (05:33)
[2020-09-15] MEDS: MEROPENEM 1GM 100 ML IV SCH ×3 (05:33→21:33)
[2020-09-15 06:13] LABS: BASOPHILS % 0.3 % (0.0-1.0); HEMATOCRIT 31.2 % (34.2-44.1); HEMOGLOBIN 10.2 g/dL (12.0-16.0); LYMPHOCYTES # (AUTO) 0.7 (1.0-3.2); LYMPHOCYTES % 5.2 % (18.0-39.1); MEAN CORPUSCULAR HEMOGLOBIN 29.1 pg (28-32); MEAN CORPUSCULAR HGB CONC 32.7 g/dL (31-35); MEAN CORPUSCULAR VOLUME 88.9 fL (81-99); MONOCYTES # (AUTO) 0.5 (0.2-0.8); MONOCYTES % 3.8 % (4.4-11.3); NEUTROPHILS # (AUTO) 12.2 (2.1-6.9); NEUTROPHILS % 85.3 % (38.7-80.0); PLATELET COUNT 169 x10e3/uL (140-360); RED BLOOD COUNT 3.51 x10e6/uL (3.6-5.1); RED CELL DISTRIBUTION WIDTH 13.6 % (11.7-14.4)
[2020-09-15 06:39] LABS: ALANINE AMINOTRANSFERASE 19 IU/L (0-55); ALBUMIN 1.8 g/dL (3.5-5.0); ALBUMIN/GLOBULIN RATIO 0.5 (0.8-2.0); ALKALINE PHOSPHATASE 85 IU/L (40-150); BLOOD UREA NITROGEN 22 mg/dL (7-26); BUN/CREATININE RATIO 38 (6-25); CALCIUM 7.4 mg/dL (8.4-10.2); CARBON DIOXIDE 29 mmol/L (22-29); CHLORIDE 107 mmol/L (98-107); CREATININE, SERUM 0.58 mg/dL (0.57-1.11); EST GLOMERULAR FILTRATION RATE > 60 ML/MIN (60-); GLUCOSE 232 mg/dL (74-118); SODIUM 141 mmol/L (136-145)
[2020-09-15 06:44] LABS: ANION GAP 9.7 mmol/L (8-16)
[2020-09-15 06:45] LABS: POTASSIUM 4.7 mmol/L (3.5-5.1)
[2020-09-15 08:02] LABS: BAND NEUTROPHILS % (MANUAL) 3 %; LYMPHOCYTES % (MANUAL) 2 % (19-48); METAMYELOCYTES % (MANUAL) 2 % (0-0); MONOCYTES % (MANUAL) 5 % (3.4-9.0); NEUTROPHILS % (MANUAL) 87 % (40-74); PLATELET ESTIMATE ADEQUATE; PROMYELOCYTES % (MANUAL) 1 % (0-0); RBC MORPHOLOGY COMMENT NORMAL
[2020-09-15 08:03] LABS: PLATELET MORPHOLOGY COMMENT FEW LARGE
[2020-09-15 08:16] LABS: ABG HCO3 28 mmol/L (22-26); ABG PCO2 48 mmHg (35-45); ABG PH 7.38 (7.35-7.45); ABG PO2 154 mmHg (80-105); ABG TCO2 30
[2020-09-15] MEDS: EYE LUBRICANT OPTH OINT 3.5GM TUBE OP SCH (09:32)
[2020-09-15] MEDS: FAMOTIDINE 20 MG TAB NG SCH (09:32)
[2020-09-15] MEDS: ZINC SULFATE 50 MG CAP PO SCH (09:32)
[2020-09-15] MEDS: DEXAMETHASONE SOD PHOS INJ 4 MG/ML VIAL IV SCH (09:32)
[2020-09-15] MEDS: ASCORBIC ACID 500 MG TAB PO SCH ×2 (09:32→16:54)
[2020-09-15] MEDS: FENTANYL 2000MCG/NS 250 250 ML IV PRN ×2 (09:40→19:00)
[2020-09-15] MEDS: REMDESIVIR 100MG/NS 100ML 100 MG IV SCH (16:54)
[2020-09-15] MEDS: ENOXAPARIN SOD INJ 40 MG/0.4 ML SYR SC SCH (16:54)
[2020-09-15] MEDS: ACETAMINOPHEN 325 MG TAB PO PRN (19:58)
[2020-09-15] MEDS: AZITHROMYCIN 500MG/NS 250 ML 250 ML IV SCH (22:01)
[2020-09-16] VITALS (24 sets, daily range): BP systolic 105–121; BP diastolic 47–65
[2020-09-16] MEDS: NOREPINEPHRINE INJ 4MG/4ML 8 MG in DEXTROSE 5% 250ML 250 ML IV SCH (02:16)
[2020-09-16] MEDS: MIDAZOLAM HCL 5MG/ML 10ML VIAL 100 ML IV PRN ×4 (02:35→22:20)
[2020-09-16 04:09] LABS: BASOPHILS # (AUTO) 0.1 (0.0-0.1); BASOPHILS % 0.4 % (0.0-1.0); HEMATOCRIT 30.9 % (34.2-44.1); HEMOGLOBIN 9.8 g/dL (12.0-16.0); LYMPHOCYTES # (AUTO) 0.8 (1.0-3.2); LYMPHOCYTES % 5.2 % (18.0-39.1); MEAN CORPUSCULAR HEMOGLOBIN 28.8 pg (28-32); MEAN CORPUSCULAR HGB CONC 31.7 g/dL (31-35); MEAN CORPUSCULAR VOLUME 90.9 fL (81-99); MONOCYTES # (AUTO) 0.8 (0.2-0.8); MONOCYTES % 5.1 % (4.4-11.3); NEUTROPHILS # (AUTO) 12.1 (2.1-6.9); NEUTROPHILS % 82.4 % (38.7-80.0); PLATELET COUNT 214 x10e3/uL (140-360)
[2020-09-16 04:27] LABS: ALANINE AMINOTRANSFERASE 20 IU/L (0-55); ALBUMIN 1.9 g/dL (3.5-5.0); ALBUMIN/GLOBULIN RATIO 0.5 (0.8-2.0); ALKALINE PHOSPHATASE 78 IU/L (40-150); ANION GAP 10.1 mmol/L (8-16); BLOOD UREA NITROGEN 33 mg/dL (7-26); BUN/CREATININE RATIO 51 (6-25); CALCIUM 7.4 mg/dL (8.4-10.2); CARBON DIOXIDE 28 mmol/L (22-29); CHLORIDE 109 mmol/L (98-107); CREATININE, SERUM 0.65 mg/dL (0.57-1.11); EST GLOMERULAR FILTRATION RATE > 60 ML/MIN (60-); GLUCOSE 280 mg/dL (74-118); POTASSIUM 5.1 mmol/L (3.5-5.1); SODIUM 142 mmol/L (136-145)
[2020-09-16] MEDS: MEROPENEM 1GM 100 ML IV SCH ×3 (05:13→22:30)
[2020-09-16] MEDS: LEVOTHYROXINE SODIUM 75 MCG TAB PO SCH (05:13)
[2020-09-16] MEDS: FENTANYL 2000MCG/NS 250 250 ML IV PRN ×2 (05:19→16:03)
[2020-09-16] MEDS: EYE LUBRICANT OPTH OINT 3.5GM TUBE OP SCH (10:34)
[2020-09-16] MEDS: ASCORBIC ACID 500 MG TAB PO SCH ×2 (10:34→16:01)
[2020-09-16] MEDS: ZINC SULFATE 50 MG CAP PO SCH (10:34)
[2020-09-16] MEDS: DEXAMETHASONE SOD PHOS INJ 4 MG/ML VIAL IV SCH (10:34)
[2020-09-16] MEDS: FAMOTIDINE 20 MG TAB NG SCH (10:34)
[2020-09-16] MEDS: ENOXAPARIN SOD INJ 40 MG/0.4 ML SYR SC SCH (16:01)
[2020-09-16] MEDS: REMDESIVIR 100MG/NS 100ML 100 MG IV SCH (17:11)
[2020-09-16 17:31] LABS: ABG HCO3 28 mmol/L (22-26); ABG PCO2 50 mmHg (35-45); ABG PH 7.35 (7.35-7.45); ABG PO2 128 mmHg (80-105); ABG TCO2 29
[2020-09-16] MEDS: AZITHROMYCIN 500MG/NS 250 ML 250 ML IV SCH (22:30)
[2020-09-17] VITALS (16 sets, daily range): BP systolic 109–130; BP diastolic 43–71
[2020-09-17] MEDS: NOREPINEPHRINE INJ 4MG/4ML 8 MG in DEXTROSE 5% 250ML 250 ML IV SCH ×2 (02:15→11:35)
[2020-09-17] MEDS: FENTANYL 2000MCG/NS 250 250 ML IV PRN ×3 (02:59→22:17)
[2020-09-17] MEDS: MIDAZOLAM HCL 5MG/ML 10ML VIAL 100 ML IV PRN ×4 (04:30→23:43)
[2020-09-17 05:09] LABS: BASOPHILS % 0.3 % (0.0-1.0); HEMATOCRIT 31.2 % (34.2-44.1); LYMPHOCYTES # (AUTO) 0.8 (1.0-3.2); LYMPHOCYTES % 6.5 % (18.0-39.1); MEAN CORPUSCULAR HEMOGLOBIN 29.2 pg (28-32); MEAN CORPUSCULAR HGB CONC 32.1 g/dL (31-35); MONOCYTES # (AUTO) 0.7 (0.2-0.8); MONOCYTES % 6.1 % (4.4-11.3); NEUTROPHILS # (AUTO) 9.6 (2.1-6.9); NEUTROPHILS % 80.6 % (38.7-80.0); PLATELET COUNT 238 x10e3/uL (140-360); RED BLOOD COUNT 3.43 x10e6/uL (3.6-5.1); RED CELL DISTRIBUTION WIDTH 13.8 % (11.7-14.4)
[2020-09-17 05:48] LABS: ALANINE AMINOTRANSFERASE 25 IU/L (0-55); ALBUMIN 1.9 g/dL (3.5-5.0); ALBUMIN/GLOBULIN RATIO 0.5 (0.8-2.0); ALKALINE PHOSPHATASE 73 IU/L (40-150); ANION GAP 13.1 mmol/L (8-16); BLOOD UREA NITROGEN 34 mg/dL (7-26); BUN/CREATININE RATIO 56 (6-25); CALCIUM 7.5 mg/dL (8.4-10.2); CARBON DIOXIDE 28 mmol/L (22-29); CHLORIDE 107 mmol/L (98-107); CREATININE, SERUM 0.61 mg/dL (0.57-1.11); EST GLOMERULAR FILTRATION RATE > 60 ML/MIN (60-); GLUCOSE 371 mg/dL (74-118); POTASSIUM 5.1 mmol/L (3.5-5.1); SODIUM 143 mmol/L (136-145)
[2020-09-17] MEDS: MEROPENEM 1GM 100 ML IV SCH ×3 (06:19→22:15)
[2020-09-17] MEDS: LEVOTHYROXINE SODIUM 75 MCG TAB PO SCH (06:19)
[2020-09-17] MEDS: DEXAMETHASONE SOD PHOS INJ 4 MG/ML VIAL IV SCH (08:49)
[2020-09-17] MEDS: ASCORBIC ACID 500 MG TAB PO SCH ×2 (08:50→16:05)
[2020-09-17] MEDS: ZINC SULFATE 50 MG CAP PO SCH (08:50)
[2020-09-17] MEDS: FAMOTIDINE 20 MG TAB NG SCH (08:50)
[2020-09-17 08:56] LABS: BAND NEUTROPHILS % (MANUAL) 7 %; LYMPHOCYTES % (MANUAL) 7 % (19-48); MONOCYTES % (MANUAL) 8 % (3.4-9.0); NEUTROPHILS % (MANUAL) 78 % (40-74)
[2020-09-17] MEDS ORDERED: NOREPINEPHRINE 8 MG/D5W 250 ML 250 ML ONE (08:59)
[2020-09-17] MEDS: EYE LUBRICANT OPTH OINT 3.5GM TUBE OP SCH (09:05)
[2020-09-17 13:05] LABS: ABG HCO3 28 mmol/L (22-26); ABG PCO2 40 mmHg (35-45); ABG PH 7.46 (7.35-7.45); ABG PO2 107 mmHg (80-105); ABG TCO2 30
[2020-09-17] MEDS: ENOXAPARIN SOD INJ 40 MG/0.4 ML SYR SC SCH (16:05)
[2020-09-17] MEDS: AZITHROMYCIN 500MG/NS 250 ML 250 ML IV SCH (22:15)
[2020-09-17] MEDS ORDERED: SODIUM CHLORIDE 0.9% 250ML 250 ML ONE (22:48)
[2020-09-18] VITALS (16 sets, daily range): BP systolic 101–143; BP diastolic 43–70
[2020-09-18] MEDS ORDERED: EPINEPHRINE HCL 1:1000 1ML 4 MG in DEXTROSE 5% 250ML 250 ML IV SCH (01:15)
[2020-09-18] MEDS ORDERED: EPINEPHRINE HCL 1:1000 1ML 4.8 MG in DEXTROSE 5% 250ML 300 ML IV SCH (01:30)
[2020-09-18] MEDS ORDERED: ATROPINE SULFATE 0.1 MG/ML 10ML SYR IV PRN (01:45)
[2020-09-18] MEDS ORDERED: DEXTROSE 5% 250ML 250 ML IV ONE (01:46)
[2020-09-18] MEDS ORDERED: EPINEPHRINE HCL 1:1000 1ML 1 MG/ML AMP ONE (02:14)
[2020-09-18] MEDS ORDERED: EPINEPHRINE HCL 1:1000 1ML 4 MG in DEXTROSE 5% 250ML 250 ML IV PRN (02:45)
[2020-09-18] MEDS: MEROPENEM 1GM 100 ML IV SCH ×3 (05:33→22:04)
[2020-09-18] MEDS: LEVOTHYROXINE SODIUM 75 MCG TAB PO SCH (05:33)
[2020-09-18] MEDS: MIDAZOLAM HCL 5MG/ML 10ML VIAL 100 ML IV PRN ×3 (07:23→23:57)
[2020-09-18] MEDS: ASCORBIC ACID 500 MG TAB PO SCH ×2 (08:14→16:03)
[2020-09-18] MEDS: FAMOTIDINE 20 MG TAB NG SCH (08:14)
[2020-09-18] MEDS: EYE LUBRICANT OPTH OINT 3.5GM TUBE OP SCH (08:14)
[2020-09-18] MEDS: DEXAMETHASONE SOD PHOS INJ 4 MG/ML VIAL IV SCH (08:14)
[2020-09-18] MEDS: ZINC SULFATE 50 MG CAP PO SCH (08:14)
[2020-09-18] MEDS: FENTANYL 2000MCG/NS 250 250 ML IV PRN ×2 (09:52→20:36)
[2020-09-18] MEDS ORDERED: LACTULOSE SYRUP 20 GM/30 ML UDC PO NR (13:30)
[2020-09-18 14:16] LABS: ABG HCO3 29 mmol/L (22-26); ABG PCO2 41 mmHg (35-45); ABG PH 7.46 (7.35-7.45); ABG PO2 85 mmHg (80-105); ABG TCO2 31
[2020-09-18] MEDS: ENOXAPARIN SOD INJ 40 MG/0.4 ML SYR SC SCH (16:03)
[2020-09-18] MEDS: AZITHROMYCIN 500MG/NS 250 ML 250 ML IV SCH (22:05)
[2020-09-19] VITALS (27 sets, daily range): BP systolic 95–122; BP diastolic 37–55
[2020-09-19] MEDS: NOREPINEPHRINE INJ 4MG/4ML 8 MG in DEXTROSE 5% 250ML 250 ML IV SCH (02:15)
[2020-09-19 04:57] LABS: BASOPHILS % 0.1 % (0.0-1.0); HEMATOCRIT 31.5 % (34.2-44.1); HEMOGLOBIN 10.3 g/dL (12.0-16.0); LYMPHOCYTES # (AUTO) 0.7 (1.0-3.2); LYMPHOCYTES % 6.7 % (18.0-39.1); MEAN CORPUSCULAR HEMOGLOBIN 29.8 pg (28-32); MEAN CORPUSCULAR HGB CONC 32.7 g/dL (31-35); MONOCYTES # (AUTO) 0.5 (0.2-0.8); MONOCYTES % 5.3 % (4.4-11.3); NEUTROPHILS # (AUTO) 8.3 (2.1-6.9); NEUTROPHILS % 83.1 % (38.7-80.0); PLATELET COUNT 255 x10e3/uL (140-360); RED BLOOD COUNT 3.46 x10e6/uL (3.6-5.1); RED CELL DISTRIBUTION WIDTH 13.7 % (11.7-14.4)
[2020-09-19 05:01] LABS: ALANINE AMINOTRANSFERASE 20 IU/L (0-55); ALBUMIN 1.8 g/dL (3.5-5.0); ALBUMIN/GLOBULIN RATIO 0.6 (0.8-2.0); ALKALINE PHOSPHATASE 56 IU/L (40-150); ANION GAP 11.6 mmol/L (8-16); BLOOD UREA NITROGEN 35 mg/dL (7-26); BUN/CREATININE RATIO 59 (6-25); CARBON DIOXIDE 26 mmol/L (22-29); CHLORIDE 110 mmol/L (98-107); CREATININE, SERUM 0.59 mg/dL (0.57-1.11); EST GLOMERULAR FILTRATION RATE > 60 ML/MIN (60-); POTASSIUM 4.6 mmol/L (3.5-5.1); SODIUM 143 mmol/L (136-145)
[2020-09-19 05:07] LABS: GLUCOSE 439 mg/dL (74-118)
[2020-09-19 05:39] LABS: FREE THYROXINE INDEX 1.7866 (1.4-3.8); THYROID STIMULATING HORMONE 0.252 uIU/mL (0.350-4.940)
[2020-09-19] MEDS ORDERED: DEXTROSE 50% SYRINGE 50 ML IV PRN ×2 (06:30→17:15)
[2020-09-19] MEDS: LEVOTHYROXINE SODIUM 75 MCG TAB PO SCH (07:15)
[2020-09-19] MEDS: MEROPENEM 1GM 100 ML IV SCH ×3 (07:15→21:56)
[2020-09-19] MEDS: INSULIN LISPRO 100 UNIT/1 ML 3ML VIAL SQ SCH ×2 (07:15→11:40)
[2020-09-19] MEDS: FENTANYL 2000MCG/NS 250 250 ML IV PRN ×2 (07:20→17:33)
[2020-09-19 07:26] LABS: ABG HCO3 30 mmol/L (22-26); ABG PCO2 43 mmHg (35-45); ABG PH 7.44 (7.35-7.45); ABG PO2 84 mmHg (80-105); ABG TCO2 31
[2020-09-19] MEDS: DEXAMETHASONE SOD PHOS INJ 4 MG/ML VIAL IV SCH (08:07)
[2020-09-19] MEDS: ZINC SULFATE 50 MG CAP PO SCH (08:07)
[2020-09-19] MEDS: EYE LUBRICANT OPTH OINT 3.5GM TUBE OP SCH (08:07)
[2020-09-19] MEDS: ASCORBIC ACID 500 MG TAB PO SCH ×2 (08:07→16:23)
[2020-09-19] MEDS: FAMOTIDINE 20 MG TAB NG SCH (08:07)
[2020-09-19] MEDS: ALBUMIN 25% 25GM 100ML 0.25 GM/ML BTL IV SCH ×2 (10:15→17:03)
[2020-09-19] MEDS: FUROSEMIDE INJ 10 MG/ML 4 ML VIAL IV SCH ×2 (10:15→21:58)
[2020-09-19 15:55] LABS: ABG HCO3 30 mmol/L (22-26); ABG PCO2 44 mmHg (35-45); ABG PH 7.43 (7.35-7.45); ABG PO2 83 mmHg (80-105); ABG TCO2 31
[2020-09-19] MEDS: ENOXAPARIN SOD INJ 40 MG/0.4 ML SYR SC SCH (16:23)
[2020-09-19] MEDS: INSULIN REGULAR, HUMAN 3ML VL 100 UNIT in SODIUM CHLORIDE 0.9% 100 ML 99 ML IV SCH ×2 (17:25)
[2020-09-19] MEDS: MIDAZOLAM HCL 5MG/ML 10ML VIAL 100 ML IV PRN (20:20)
[2020-09-19] MEDS: INSULIN GLARGINE 100 UNITS/ML VIAL SQ SCH (21:56)
[2020-09-19] MEDS: AZITHROMYCIN 500MG/NS 250 ML 250 ML IV SCH (21:56)
[2020-09-19] MEDS ORDERED: FUROSEMIDE INJ 10 MG/ML 4 ML VIAL ONE (22:05)
[2020-09-20] VITALS (26 sets, daily range): BP systolic 91–143; BP diastolic 37–68
[2020-09-20] MEDS: ALBUMIN 25% 25GM 100ML 0.25 GM/ML BTL IV SCH (01:40)
[2020-09-20] MEDS: FENTANYL 2000MCG/NS 250 250 ML IV PRN ×2 (05:15→16:15)
[2020-09-20 05:56] LABS: BASOPHILS % 0.1 % (0.0-1.0); EOSINOPHILS % 0.3 % (0.0-6.0); HEMATOCRIT 28.6 % (34.2-44.1); HEMOGLOBIN 9.1 g/dL (12.0-16.0); LYMPHOCYTES % 7.4 % (18.0-39.1); MEAN CORPUSCULAR HEMOGLOBIN 28.6 pg (28-32); MEAN CORPUSCULAR HGB CONC 31.8 g/dL (31-35); MEAN CORPUSCULAR VOLUME 89.9 fL (81-99); MONOCYTES # (AUTO) 0.5 (0.2-0.8); MONOCYTES % 3.4 % (4.4-11.3); NEUTROPHILS # (AUTO) 11.6 (2.1-6.9); NEUTROPHILS % 86.7 % (38.7-80.0); PLATELET COUNT 186 x10e3/uL (140-360); RED BLOOD COUNT 3.18 x10e6/uL (3.6-5.1); RED CELL DISTRIBUTION WIDTH 13.7 % (11.7-14.4)
[2020-09-20] MEDS: LEVOTHYROXINE SODIUM 75 MCG TAB PO SCH (06:00)
[2020-09-20] MEDS: MEROPENEM 1GM 100 ML IV SCH ×3 (06:00→22:28)
[2020-09-20 06:25] LABS: ALANINE AMINOTRANSFERASE 26 IU/L (0-55); ALBUMIN 3.2 g/dL (3.5-5.0); ALBUMIN/GLOBULIN RATIO 1.3 (0.8-2.0); ALKALINE PHOSPHATASE 55 IU/L (40-150); BLOOD UREA NITROGEN 36 mg/dL (7-26); BUN/CREATININE RATIO 65 (6-25); CALCIUM 8.2 mg/dL (8.4-10.2); CARBON DIOXIDE 31 mmol/L (22-29); CHLORIDE 106 mmol/L (98-107); CREATININE, SERUM 0.55 mg/dL (0.57-1.11); EST GLOMERULAR FILTRATION RATE > 60 ML/MIN (60-); GLUCOSE 269 mg/dL (74-118); SODIUM 144 mmol/L (136-145)
[2020-09-20] MEDS: BALSAM PERU/CASTOR OIL 60 GM OINT...G. TP SCH (08:01)
[2020-09-20] MEDS: EYE LUBRICANT OPTH OINT 3.5GM TUBE OP SCH (08:01)
[2020-09-20] MEDS: ASCORBIC ACID 500 MG TAB PO SCH ×2 (08:01→16:14)
[2020-09-20] MEDS: FAMOTIDINE 20 MG TAB NG SCH (08:01)
[2020-09-20] MEDS: ZINC SULFATE 50 MG CAP PO SCH (08:01)
[2020-09-20] MEDS: DEXAMETHASONE SOD PHOS INJ 4 MG/ML VIAL IV SCH (08:01)
[2020-09-20] MEDS: MIDAZOLAM HCL 5MG/ML 10ML VIAL 100 ML IV PRN ×2 (09:18→19:54)
[2020-09-20 09:56] LABS: ABG PCO2 42 mmHg (35-45); ABG PH 7.48 (7.35-7.45); ABG PO2 73 mmHg (80-105)
[2020-09-20 09:57] LABS: ABG HCO3 32 mmol/L (22-26); ABG TCO2 33
[2020-09-20] MEDS ORDERED: SODIUM CHLORIDE 0.9% 250ML 250 ML ONE (12:54)
[2020-09-20] MEDS: ENOXAPARIN SOD INJ 40 MG/0.4 ML SYR SC SCH (16:14)
[2020-09-20 17:02] LABS: ABG HCO3 32 mmol/L (22-26); ABG PCO2 43 mmHg (35-45); ABG PH 7.48 (7.35-7.45); ABG PO2 86 mmHg (80-105); ABG TCO2 33
[2020-09-20] MEDS: INSULIN REGULAR, HUMAN 3ML VL 100 UNIT in SODIUM CHLORIDE 0.9% 100 ML 99 ML IV SCH ×2 (17:06)
[2020-09-20] MEDS: INSULIN GLARGINE 100 UNITS/ML VIAL SQ SCH (21:55)
[2020-09-20] MEDS: AZITHROMYCIN 500MG/NS 250 ML 250 ML IV SCH (22:28)
[2020-09-21] VITALS (24 sets, daily range): BP systolic 89–158; BP diastolic 42–74
[2020-09-21] MEDS: FENTANYL 2000MCG/NS 250 250 ML IV PRN ×2 (01:15→10:01)
[2020-09-21] MEDS: MIDAZOLAM HCL 5MG/ML 10ML VIAL 100 ML IV PRN ×3 (05:00→23:30)
[2020-09-21 05:13] LABS: BASOPHILS % 0.1 % (0.0-1.0); EOSINOPHILS # (AUTO) 0.1 (0.0-0.4); EOSINOPHILS % 0.5 % (0.0-6.0); HEMATOCRIT 27.7 % (34.2-44.1); HEMOGLOBIN 8.8 g/dL (12.0-16.0); LYMPHOCYTES # (AUTO) 1.1 (1.0-3.2); LYMPHOCYTES % 7.3 % (18.0-39.1); MEAN CORPUSCULAR HEMOGLOBIN 28.8 pg (28-32); MEAN CORPUSCULAR HGB CONC 31.8 g/dL (31-35); MEAN CORPUSCULAR VOLUME 90.5 fL (81-99); MONOCYTES # (AUTO) 0.5 (0.2-0.8); MONOCYTES % 3.2 % (4.4-11.3); NEUTROPHILS # (AUTO) 13.4 (2.1-6.9); NEUTROPHILS % 87.1 % (38.7-80.0); PLATELET COUNT 199 x10e3/uL (140-360); RED BLOOD COUNT 3.06 x10e6/uL (3.6-5.1)
[2020-09-21] MEDS: LEVOTHYROXINE SODIUM 75 MCG TAB PO SCH (05:54)
[2020-09-21] MEDS: MEROPENEM 1GM 100 ML IV SCH ×3 (05:54→21:40)
[2020-09-21] MEDS: ACETAMINOPHEN 325 MG TAB PO PRN ×2 (05:55→21:41)
[2020-09-21 06:30] LABS: ALANINE AMINOTRANSFERASE 24 IU/L (0-55); ALBUMIN 2.7 g/dL (3.5-5.0); ALBUMIN/GLOBULIN RATIO 1.2 (0.8-2.0); ALKALINE PHOSPHATASE 48 IU/L (40-150); ANION GAP 10.2 mmol/L (8-16); BLOOD UREA NITROGEN 29 mg/dL (7-26); BUN/CREATININE RATIO 59 (6-25); CALCIUM 7.7 mg/dL (8.4-10.2); CARBON DIOXIDE 30 mmol/L (22-29); CHLORIDE 106 mmol/L (98-107); CREATININE, SERUM 0.49 mg/dL (0.57-1.11); EST GLOMERULAR FILTRATION RATE > 60 ML/MIN (60-); GLUCOSE 201 mg/dL (74-118); POTASSIUM 4.2 mmol/L (3.5-5.1); SODIUM 142 mmol/L (136-145)
[2020-09-21] MEDS: EYE LUBRICANT OPTH OINT 3.5GM TUBE OP SCH (09:09)
[2020-09-21] MEDS: FAMOTIDINE 20 MG TAB NG SCH (09:09)
[2020-09-21] MEDS: ZINC SULFATE 50 MG CAP PO SCH (09:09)
[2020-09-21] MEDS: BALSAM PERU/CASTOR OIL 60 GM OINT...G. TP SCH (09:09)
[2020-09-21] MEDS: ASCORBIC ACID 500 MG TAB PO SCH ×2 (09:09→16:26)
[2020-09-21 11:16] LABS: ABG PCO2 39 mmHg (35-45); ABG PH 7.48 (7.35-7.45)
[2020-09-21 11:17] LABS: ABG HCO3 29 mmol/L (22-26); ABG PO2 107 mmHg (80-105); ABG TCO2 30
[2020-09-21] MEDS: ENOXAPARIN SOD INJ 40 MG/0.4 ML SYR SC SCH (16:26)
[2020-09-21] MEDS: FENTANYL CITRATE INJ 2,000 MCG in SODIUM CHLORIDE 0.9% 250ML 210 ML IV PRN (19:50)
[2020-09-21] MEDS: AZITHROMYCIN 500MG/NS 250 ML 250 ML IV SCH (21:41)
[2020-09-21] MEDS: INSULIN GLARGINE 100 UNITS/ML VIAL SQ SCH (21:55)
[2020-09-22] VITALS (24 sets, daily range): BP systolic 91–151; BP diastolic 42–66
[2020-09-22] MEDS: FENTANYL CITRATE INJ 2,000 MCG in SODIUM CHLORIDE 0.9% 250ML 210 ML IV PRN (04:30)
[2020-09-22] MEDS ORDERED: FENTANYL 2000MCG/NS 250 250 ML ONE ×2 (04:36→14:16)
[2020-09-22] MEDS: MEROPENEM 1GM 100 ML IV SCH ×3 (04:59→22:00)
[2020-09-22] MEDS: LEVOTHYROXINE SODIUM 75 MCG TAB PO SCH (05:00)
[2020-09-22 05:39] LABS: BASOPHILS % 0.1 % (0.0-1.0); EOSINOPHILS # (AUTO) 0.2 (0.0-0.4); EOSINOPHILS % 1.1 % (0.0-6.0); HEMATOCRIT 27.3 % (34.2-44.1); HEMOGLOBIN 8.7 g/dL (12.0-16.0); LYMPHOCYTES # (AUTO) 0.8 (1.0-3.2); LYMPHOCYTES % 6.3 % (18.0-39.1); MEAN CORPUSCULAR HEMOGLOBIN 28.6 pg (28-32); MEAN CORPUSCULAR HGB CONC 31.9 g/dL (31-35); MEAN CORPUSCULAR VOLUME 89.8 fL (81-99); MONOCYTES # (AUTO) 0.4 (0.2-0.8); MONOCYTES % 2.8 % (4.4-11.3); NEUTROPHILS # (AUTO) 11.7 (2.1-6.9); NEUTROPHILS % 88.5 % (38.7-80.0); PLATELET COUNT 184 x10e3/uL (140-360); RED BLOOD COUNT 3.04 x10e6/uL (3.6-5.1); RED CELL DISTRIBUTION WIDTH 14.3 % (11.7-14.4)
[2020-09-22 05:57] LABS: ALANINE AMINOTRANSFERASE 24 IU/L (0-55); ALBUMIN 2.3 g/dL (3.5-5.0); ALBUMIN/GLOBULIN RATIO 0.9 (0.8-2.0); ALKALINE PHOSPHATASE 59 IU/L (40-150); ANION GAP 7.9 mmol/L (8-16); BLOOD UREA NITROGEN 28 mg/dL (7-26); BUN/CREATININE RATIO 62 (6-25); CALCIUM 7.6 mg/dL (8.4-10.2); CARBON DIOXIDE 29 mmol/L (22-29); CHLORIDE 105 mmol/L (98-107); CREATININE, SERUM 0.45 mg/dL (0.57-1.11); EST GLOMERULAR FILTRATION RATE > 60 ML/MIN (60-); GLUCOSE 145 mg/dL (74-118); POTASSIUM 3.9 mmol/L (3.5-5.1); SODIUM 138 mmol/L (136-145)
[2020-09-22] MEDS: MIDAZOLAM HCL 5MG/ML 10ML VIAL 100 ML IV PRN (08:00)
[2020-09-22 09:17] LABS: ABG HCO3 30 mmol/L (22-26); ABG PCO2 72 mmHg (35-45); ABG PH 7.22 (7.35-7.45); ABG PO2 90 mmHg (80-105); ABG TCO2 32
[2020-09-22] MEDS: EYE LUBRICANT OPTH OINT 3.5GM TUBE OP SCH (10:14)
[2020-09-22] MEDS: ASCORBIC ACID 500 MG TAB PO SCH ×2 (10:14→16:38)
[2020-09-22] MEDS: ZINC SULFATE 50 MG CAP PO SCH (10:14)
[2020-09-22] MEDS: BALSAM PERU/CASTOR OIL 60 GM OINT...G. TP SCH (10:15)
[2020-09-22] MEDS: FAMOTIDINE 20 MG TAB NG SCH (10:16)
[2020-09-22] MEDS ORDERED: VECURONIUM BROMIDE FOR INJ 20 MG VIAL IV ONE (11:00)
[2020-09-22] MEDS: FENTANYL 2000MCG/NS 250 250 ML IV PRN (16:29)
[2020-09-22] MEDS: ENOXAPARIN SOD INJ 40 MG/0.4 ML SYR SC SCH (16:38)
[2020-09-22] MEDS: ACETYLCYSTEINE 20% INHAL SOLN 30 ML VIAL INH SCH (21:00)
[2020-09-22] MEDS: IPRATROPIUM BROMIDE 0.02% 2.5 ML NEB NEB SCH (21:47)
[2020-09-22] MEDS: INSULIN GLARGINE 100 UNITS/ML VIAL SQ SCH (22:00)
[2020-09-23] VITALS (29 sets, daily range): BP systolic 90–150; BP diastolic 42–66
[2020-09-23] MEDS: FENTANYL 2000MCG/NS 250 250 ML IV PRN ×3 (00:48→21:48)
[2020-09-23] MEDS: MIDAZOLAM HCL 5MG/ML 10ML VIAL 100 ML IV PRN ×4 (00:49→21:49)
[2020-09-23 05:31] LABS: BASOPHILS % 0.2 % (0.0-1.0); EOSINOPHILS # (AUTO) 0.2 (0.0-0.4); EOSINOPHILS % 1.4 % (0.0-6.0); HEMATOCRIT 28.2 % (34.2-44.1); HEMOGLOBIN 8.9 g/dL (12.0-16.0); LYMPHOCYTES # (AUTO) 0.8 (1.0-3.2); LYMPHOCYTES % 6.5 % (18.0-39.1); MEAN CORPUSCULAR HEMOGLOBIN 28.4 pg (28-32); MEAN CORPUSCULAR HGB CONC 31.6 g/dL (31-35); MEAN CORPUSCULAR VOLUME 90.1 fL (81-99); MONOCYTES # (AUTO) 0.4 (0.2-0.8); MONOCYTES % 3.7 % (4.4-11.3); NEUTROPHILS # (AUTO) 10.2 (2.1-6.9); NEUTROPHILS % 86.7 % (38.7-80.0); PLATELET COUNT 192 x10e3/uL (140-360); RED BLOOD COUNT 3.13 x10e6/uL (3.6-5.1); RED CELL DISTRIBUTION WIDTH 14.5 % (11.7-14.4)
[2020-09-23 05:45] LABS: ALANINE AMINOTRANSFERASE 21 IU/L (0-55); ALBUMIN/GLOBULIN RATIO 0.7 (0.8-2.0); ALKALINE PHOSPHATASE 46 IU/L (40-150); ANION GAP 9.7 mmol/L (8-16); BLOOD UREA NITROGEN 22 mg/dL (7-26); BUN/CREATININE RATIO 55 (6-25); CALCIUM 7.1 mg/dL (8.4-10.2); CARBON DIOXIDE 28 mmol/L (22-29); CHLORIDE 104 mmol/L (98-107); EST GLOMERULAR FILTRATION RATE > 60 ML/MIN (60-); GLUCOSE 113 mg/dL (74-118); POTASSIUM 3.7 mmol/L (3.5-5.1); SODIUM 138 mmol/L (136-145)
[2020-09-23] MEDS: LEVOTHYROXINE SODIUM 75 MCG TAB PO SCH (06:44)
[2020-09-23] MEDS: MEROPENEM 1GM 100 ML IV SCH ×3 (06:44→21:48)
[2020-09-23] MEDS: ACETAMINOPHEN 325 MG TAB PO PRN ×2 (06:46→21:53)
[2020-09-23] MEDS: IPRATROPIUM BROMIDE 0.02% 2.5 ML NEB NEB SCH ×4 (07:00→23:40)
[2020-09-23 08:09] LABS: ABG PCO2 38 mmHg (35-45); ABG PH 7.47 (7.35-7.45)
[2020-09-23 08:10] LABS: ABG HCO3 28 mmol/L (22-26); ABG PO2 57 mmHg (80-105); ABG TCO2 29
[2020-09-23] MEDS: ACETYLCYSTEINE 20% INHAL SOLN 30 ML VIAL INH SCH ×2 (08:16→21:00)
[2020-09-23] MEDS: ASCORBIC ACID 500 MG TAB PO SCH ×2 (08:20→17:26)
[2020-09-23] MEDS: EYE LUBRICANT OPTH OINT 3.5GM TUBE OP SCH (08:20)
[2020-09-23] MEDS: BALSAM PERU/CASTOR OIL 60 GM OINT...G. TP SCH (08:20)
[2020-09-23] MEDS: FAMOTIDINE 20 MG TAB NG SCH (08:20)
[2020-09-23] MEDS: ZINC SULFATE 50 MG CAP PO SCH (08:20)
[2020-09-23] MEDS: ENOXAPARIN SOD INJ 40 MG/0.4 ML SYR SC SCH (17:26)
[2020-09-23] MEDS ORDERED: SODIUM CHLORIDE 0.9% 1000ML 1,000 ML ONE (18:23)
[2020-09-23] MEDS: DOCUSATE SODIUM LIQD 100 MG/10 ML UDC NG SCH (21:47)
[2020-09-23] MEDS: INSULIN GLARGINE 100 UNITS/ML VIAL SQ SCH (21:47)
[2020-09-23] MEDS ORDERED: HEPARIN SOD/SOD CHLORIDE 1,000 ML ONE (23:53)
[2020-09-24] VITALS (29 sets, daily range): BP systolic 87–181; BP diastolic 42–73
[2020-09-24] MEDS: MIDAZOLAM HCL 5MG/ML 10ML VIAL 100 ML IV PRN ×4 (04:06→22:30)
[2020-09-24] MEDS: LEVOTHYROXINE SODIUM 75 MCG TAB PO SCH (04:45)
[2020-09-24 05:12] LABS: BASOPHILS % 0.1 % (0.0-1.0); EOSINOPHILS # (AUTO) 0.2 (0.0-0.4); EOSINOPHILS % 1.7 % (0.0-6.0); HEMATOCRIT 28.6 % (34.2-44.1); HEMOGLOBIN 9.1 g/dL (12.0-16.0); LYMPHOCYTES # (AUTO) 0.9 (1.0-3.2); LYMPHOCYTES % 7.9 % (18.0-39.1); MEAN CORPUSCULAR HEMOGLOBIN 28.3 pg (28-32); MEAN CORPUSCULAR HGB CONC 31.8 g/dL (31-35); MEAN CORPUSCULAR VOLUME 88.8 fL (81-99); MONOCYTES # (AUTO) 0.5 (0.2-0.8); MONOCYTES % 4.1 % (4.4-11.3); NEUTROPHILS # (AUTO) 9.9 (2.1-6.9); NEUTROPHILS % 84.9 % (38.7-80.0); PLATELET COUNT 232 x10e3/uL (140-360); RED BLOOD COUNT 3.22 x10e6/uL (3.6-5.1); RED CELL DISTRIBUTION WIDTH 14.6 % (11.7-14.4)
[2020-09-24 05:29] LABS: ALANINE AMINOTRANSFERASE 21 IU/L (0-55); ALBUMIN/GLOBULIN RATIO 0.6 (0.8-2.0); ALKALINE PHOSPHATASE 69 IU/L (40-150); ANION GAP 10.1 mmol/L (8-16); BLOOD UREA NITROGEN 19 mg/dL (7-26); BUN/CREATININE RATIO 43 (6-25); CALCIUM 7.6 mg/dL (8.4-10.2); CARBON DIOXIDE 28 mmol/L (22-29); CHLORIDE 102 mmol/L (98-107); CREATININE, SERUM 0.44 mg/dL (0.57-1.11); EST GLOMERULAR FILTRATION RATE > 60 ML/MIN (60-); GLUCOSE 111 mg/dL (74-118); POTASSIUM 4.1 mmol/L (3.5-5.1); SODIUM 136 mmol/L (136-145)
[2020-09-24] MEDS: FENTANYL 2000MCG/NS 250 250 ML IV PRN ×3 (06:01→23:25)
[2020-09-24] MEDS: EYE LUBRICANT OPTH OINT 3.5GM TUBE OP SCH (08:42)
[2020-09-24] MEDS: BALSAM PERU/CASTOR OIL 60 GM OINT...G. TP SCH (08:42)
[2020-09-24] MEDS: ASCORBIC ACID 500 MG TAB PO SCH ×2 (08:42→16:23)
[2020-09-24] MEDS: ZINC SULFATE 50 MG CAP PO SCH (08:42)
[2020-09-24] MEDS: FAMOTIDINE 20 MG TAB NG SCH (08:42)
[2020-09-24] MEDS: DOCUSATE SODIUM LIQD 100 MG/10 ML UDC NG SCH (08:42)
[2020-09-24 09:46] LABS: ABG HCO3 29 mmol/L (22-26); ABG PCO2 46 mmHg (35-45); ABG PO2 62 mmHg (80-105); ABG TCO2 30
[2020-09-24] MEDS: ACETAMINOPHEN 325 MG TAB PO PRN ×2 (13:24→22:15)
[2020-09-24] MEDS: IPRATROPIUM BROMIDE 0.02% 2.5 ML NEB NEB SCH ×2 (13:30→19:30)
[2020-09-24] MEDS: ENOXAPARIN SOD INJ 40 MG/0.4 ML SYR SC SCH (16:51)
[2020-09-24] MEDS: ACETYLCYSTEINE 20% INHAL SOLN 30 ML VIAL INH SCH (19:30)
[2020-09-24] MEDS: INSULIN GLARGINE 100 UNITS/ML VIAL SQ SCH (21:00)
[2020-09-24] MEDS: FENTANYL CITRATE INJ 2,000 MCG in SODIUM CHLORIDE 0.9% 250ML 210 ML IV PRN (22:30)
[2020-09-25] VITALS (30 sets, daily range): BP systolic 86–171; BP diastolic 42–93
[2020-09-25] MEDS: INSULIN REGULAR, HUMAN 3ML VL 100 UNIT in SODIUM CHLORIDE 0.9% 100 ML 99 ML IV SCH ×6 (01:02→05:10)
[2020-09-25] MEDS: INSULIN GLARGINE 100 UNITS/ML VIAL SQ SCH ×2 (01:56→20:46)
[2020-09-25] MEDS: DOCUSATE SODIUM LIQD 100 MG/10 ML UDC NG SCH ×3 (02:57→20:45)
[2020-09-25] MEDS: IPRATROPIUM BROMIDE 0.02% 2.5 ML NEB NEB SCH ×2 (02:58→19:55)
[2020-09-25] MEDS: ACETAMINOPHEN 325 MG TAB PO PRN (03:55)
[2020-09-25 05:43] LABS: BASOPHILS % 0.2 % (0.0-1.0); EOSINOPHILS # (AUTO) 0.1 (0.0-0.4); EOSINOPHILS % 0.8 % (0.0-6.0); HEMATOCRIT 27.6 % (34.2-44.1); HEMOGLOBIN 8.7 g/dL (12.0-16.0); LYMPHOCYTES # (AUTO) 0.3 (1.0-3.2); LYMPHOCYTES % 2.5 % (18.0-39.1); MEAN CORPUSCULAR HEMOGLOBIN 29.1 pg (28-32); MEAN CORPUSCULAR HGB CONC 31.5 g/dL (31-35); MEAN CORPUSCULAR VOLUME 92.3 fL (81-99); MONOCYTES # (AUTO) 0.4 (0.2-0.8); MONOCYTES % 2.8 % (4.4-11.3); NEUTROPHILS % 92.6 % (38.7-80.0); PLATELET COUNT 185 x10e3/uL (140-360); RED BLOOD COUNT 2.99 x10e6/uL (3.6-5.1); RED CELL DISTRIBUTION WIDTH 14.6 % (11.7-14.4)
[2020-09-25 06:00] LABS: ALANINE AMINOTRANSFERASE 25 IU/L (0-55); ALBUMIN 1.8 g/dL (3.5-5.0); ALBUMIN/GLOBULIN RATIO 0.5 (0.8-2.0); ALKALINE PHOSPHATASE 91 IU/L (40-150); ANION GAP 12.3 mmol/L (8-16); BLOOD UREA NITROGEN 15 mg/dL (7-26); BUN/CREATININE RATIO 36 (6-25); CALCIUM 7.4 mg/dL (8.4-10.2); CARBON DIOXIDE 25 mmol/L (22-29); CHLORIDE 102 mmol/L (98-107); CREATININE, SERUM 0.42 mg/dL (0.57-1.11); EST GLOMERULAR FILTRATION RATE > 60 ML/MIN (60-); GLUCOSE 106 mg/dL (74-118); POTASSIUM 4.3 mmol/L (3.5-5.1); SODIUM 135 mmol/L (136-145)
[2020-09-25] MEDS: LEVOTHYROXINE SODIUM 75 MCG TAB PO SCH (06:00)
[2020-09-25] MEDS: MIDAZOLAM HCL 5MG/ML 10ML VIAL 100 ML IV PRN ×3 (07:15→22:58)
[2020-09-25] MEDS: FENTANYL 2000MCG/NS 250 250 ML IV PRN ×2 (08:20→16:25)
[2020-09-25] MEDS: ASCORBIC ACID 500 MG TAB PO SCH ×2 (09:05→16:31)
[2020-09-25] MEDS: EYE LUBRICANT OPTH OINT 3.5GM TUBE OP SCH (09:05)
[2020-09-25] MEDS: ZINC SULFATE 50 MG CAP PO SCH (09:05)
[2020-09-25] MEDS: FAMOTIDINE 20 MG TAB NG SCH (09:05)
[2020-09-25] MEDS: BALSAM PERU/CASTOR OIL 60 GM OINT...G. TP SCH (09:06)
[2020-09-25] MEDS ORDERED: VECURONIUM BROMIDE FOR INJ 20 MG VIAL ONE (10:26)
[2020-09-25] MEDS ORDERED: CISATRACURIUM BESYLATE 100 MG in SODIUM CHLORIDE 0.9% 100 ML 50 ML IV PRN (10:45)
[2020-09-25 10:47] LABS: ABG HCO3 29 mmol/L (22-26); ABG PCO2 52 mmHg (35-45); ABG PH 7.36 (7.35-7.45); ABG PO2 56 mmHg (80-105); ABG TCO2 31
[2020-09-25 15:05] LABS: ABG HCO3 29 mmol/L (22-26); ABG PCO2 56 mmHg (35-45); ABG PH 7.33 (7.35-7.45); ABG PO2 64 mmHg (80-105)
[2020-09-25 15:06] LABS: ABG TCO2 31
[2020-09-25] MEDS: ROCURONIUM BROMIDE 250 ML IV SCH (16:24)
[2020-09-25] MEDS: ALBUMIN 25% 25GM 100ML 0.25 GM/ML BTL IV SCH ×2 (16:31→22:00)
[2020-09-25] MEDS: ENOXAPARIN SOD INJ 40 MG/0.4 ML SYR SC SCH (16:31)
[2020-09-25] MEDS: FUROSEMIDE INJ 10 MG/ML 4 ML VIAL IV SCH (16:31)
[2020-09-25] MEDS ORDERED: VECURONIUM BROMIDE FOR INJ 20 MG VIAL IV NR (17:38)
[2020-09-26] VITALS (25 sets, daily range): BP systolic 97–158; BP diastolic 47–67
[2020-09-26] MEDS: FENTANYL 2000MCG/NS 250 250 ML IV PRN ×2 (00:25→09:14)
[2020-09-26] MEDS: IPRATROPIUM BROMIDE 0.02% 2.5 ML NEB NEB SCH ×4 (01:00→19:00)
[2020-09-26] MEDS: MIDAZOLAM HCL 5MG/ML 10ML VIAL 100 ML IV PRN ×4 (02:50→21:05)
[2020-09-26] MEDS: FUROSEMIDE INJ 10 MG/ML 4 ML VIAL IV SCH (04:42)
[2020-09-26 05:15] LABS: BASOPHILS % 0.1 % (0.0-1.0); EOSINOPHILS % 0.1 % (0.0-6.0); HEMATOCRIT 28.5 % (34.2-44.1); HEMOGLOBIN 8.6 g/dL (12.0-16.0); LYMPHOCYTES # (AUTO) 0.5 (1.0-3.2); LYMPHOCYTES % 3.6 % (18.0-39.1); MEAN CORPUSCULAR HEMOGLOBIN 28.8 pg (28-32); MEAN CORPUSCULAR HGB CONC 30.2 g/dL (31-35); MEAN CORPUSCULAR VOLUME 95.3 fL (81-99); MONOCYTES # (AUTO) 0.5 (0.2-0.8); MONOCYTES % 3.7 % (4.4-11.3); NEUTROPHILS # (AUTO) 12.6 (2.1-6.9); NEUTROPHILS % 90.3 % (38.7-80.0); PLATELET COUNT 252 x10e3/uL (140-360); RED BLOOD COUNT 2.99 x10e6/uL (3.6-5.1); RED CELL DISTRIBUTION WIDTH 14.6 % (11.7-14.4)
[2020-09-26 05:35] LABS: ALANINE AMINOTRANSFERASE 26 IU/L (0-55); ALBUMIN 2.5 g/dL (3.5-5.0); ALBUMIN/GLOBULIN RATIO 0.7 (0.8-2.0); ALKALINE PHOSPHATASE 93 IU/L (40-150); ANION GAP 12.8 mmol/L (8-16); BLOOD UREA NITROGEN 17 mg/dL (7-26); BUN/CREATININE RATIO 31 (6-25); CALCIUM 7.5 mg/dL (8.4-10.2); CARBON DIOXIDE 26 mmol/L (22-29); CHLORIDE 103 mmol/L (98-107); CREATININE, SERUM 0.54 mg/dL (0.57-1.11); EST GLOMERULAR FILTRATION RATE > 60 ML/MIN (60-); GLUCOSE 110 mg/dL (74-118); POTASSIUM 4.8 mmol/L (3.5-5.1); SODIUM 137 mmol/L (136-145)
[2020-09-26] MEDS: LEVOTHYROXINE SODIUM 75 MCG TAB PO SCH (06:15)
[2020-09-26] MEDS: ACETAMINOPHEN 325 MG TAB PO PRN ×2 (06:15→16:45)
[2020-09-26] MEDS: ALBUMIN 25% 25GM 100ML 0.25 GM/ML BTL IV SCH (07:57)
[2020-09-26] MEDS: DOCUSATE SODIUM LIQD 100 MG/10 ML UDC NG SCH ×2 (09:07→20:58)
[2020-09-26] MEDS: FAMOTIDINE 20 MG TAB NG SCH (09:07)
[2020-09-26] MEDS: EYE LUBRICANT OPTH OINT 3.5GM TUBE OP SCH (09:07)
[2020-09-26] MEDS: ZINC SULFATE 50 MG CAP PO SCH (09:07)
[2020-09-26] MEDS: ASCORBIC ACID 500 MG TAB PO SCH ×2 (09:07→16:47)
[2020-09-26] MEDS: BALSAM PERU/CASTOR OIL 60 GM OINT...G. TP SCH (09:07)
[2020-09-26 09:51] LABS: ABG HCO3 30 mmol/L (22-26); ABG PCO2 86 mmHg (35-45); ABG PH 7.16 (7.35-7.45); ABG PO2 60 mmHg (80-105); ABG TCO2 33
[2020-09-26 10:03] LABS: ABG HCO3 31 mmol/L (22-26); ABG PCO2 78 mmHg (35-45); ABG PH 7.21 (7.35-7.45); ABG PO2 72 mmHg (80-105); ABG TCO2 33
[2020-09-26] MEDS ORDERED: FUROSEMIDE INJ 100 MG in SODIUM CHLORIDE 0.9% 100 ML 90 ML IV SCH (13:00)
[2020-09-26] MEDS: ROCURONIUM BROMIDE 250 ML IV SCH (15:15)
[2020-09-26] MEDS: FAMOTIDINE 20 MG/2 ML VIAL IV SCH (16:47)
[2020-09-26] MEDS: ENOXAPARIN SOD INJ 40 MG/0.4 ML SYR SC SCH (16:50)
[2020-09-26] MEDS: MEROPENEM 1GM 100 ML IV SCH (20:22)
[2020-09-26] MEDS: VANCOMYCIN 1GM/NS 250 ML 250 ML IV SCH (20:58)
[2020-09-26] MEDS: INSULIN GLARGINE 100 UNITS/ML VIAL SQ SCH (21:00)
[2020-09-26] MEDS: FENTANYL CITRATE INJ 2,000 MCG in SODIUM CHLORIDE 0.9% 250ML 210 ML IV PRN (21:17)
[2020-09-27] VITALS (25 sets, daily range): BP systolic 88–165; BP diastolic 56–72
[2020-09-27] MEDS: IPRATROPIUM BROMIDE 0.02% 2.5 ML NEB NEB SCH ×4 (01:00→19:00)
[2020-09-27] MEDS: MIDAZOLAM HCL 5MG/ML 10ML VIAL 100 ML IV PRN ×2 (02:40→08:09)
[2020-09-27] MEDS: FENTANYL 2000MCG/NS 250 250 ML IV PRN ×2 (02:40→11:18)
[2020-09-27 05:10] LABS: BASOPHILS % 0.2 % (0.0-1.0); EOSINOPHILS # (AUTO) 0.3 (0.0-0.4); EOSINOPHILS % 2.1 % (0.0-6.0); HEMATOCRIT 29.6 % (34.2-44.1); LYMPHOCYTES # (AUTO) 0.7 (1.0-3.2); LYMPHOCYTES % 5.4 % (18.0-39.1); MEAN CORPUSCULAR HEMOGLOBIN 28.6 pg (28-32); MEAN CORPUSCULAR HGB CONC 30.4 g/dL (31-35); MONOCYTES # (AUTO) 0.6 (0.2-0.8); MONOCYTES % 4.4 % (4.4-11.3); NEUTROPHILS # (AUTO) 10.9 (2.1-6.9); NEUTROPHILS % 86.6 % (38.7-80.0); PLATELET COUNT 302 x10e3/uL (140-360); RED BLOOD COUNT 3.15 x10e6/uL (3.6-5.1); RED CELL DISTRIBUTION WIDTH 14.7 % (11.7-14.4)
[2020-09-27 05:33] LABS: ALANINE AMINOTRANSFERASE 20 IU/L (0-55); ALBUMIN 2.6 g/dL (3.5-5.0); ALBUMIN/GLOBULIN RATIO 0.7 (0.8-2.0); ALKALINE PHOSPHATASE 94 IU/L (40-150); ANION GAP 11.6 mmol/L (8-16); BLOOD UREA NITROGEN 25 mg/dL (7-26); BUN/CREATININE RATIO 38 (6-25); CALCIUM 7.9 mg/dL (8.4-10.2); CARBON DIOXIDE 30 mmol/L (22-29); CHLORIDE 101 mmol/L (98-107); CREATININE, SERUM 0.66 mg/dL (0.57-1.11); EST GLOMERULAR FILTRATION RATE > 60 ML/MIN (60-); GLUCOSE 100 mg/dL (74-118); POTASSIUM 4.6 mmol/L (3.5-5.1); SODIUM 138 mmol/L (136-145)
[2020-09-27] MEDS: MEROPENEM 1GM 100 ML IV SCH ×3 (05:45→20:46)
[2020-09-27] MEDS: LEVOTHYROXINE SODIUM 75 MCG TAB PO SCH (05:45)
[2020-09-27] MEDS: FUROSEMIDE INJ 100 MG in SODIUM CHLORIDE 0.9% 100 ML 90 ML IV SCH ×2 (07:32→16:58)
[2020-09-27] MEDS: VANCOMYCIN 1GM/NS 250 ML 250 ML IV SCH ×2 (08:11→21:56)
[2020-09-27] MEDS: FAMOTIDINE 20 MG/2 ML VIAL IV SCH ×2 (08:11→16:23)
[2020-09-27] MEDS: EYE LUBRICANT OPTH OINT 3.5GM TUBE OP SCH (08:17)
[2020-09-27] MEDS: DOCUSATE SODIUM LIQD 100 MG/10 ML UDC NG SCH ×2 (08:17→21:56)
[2020-09-27] MEDS: ASCORBIC ACID 500 MG TAB PO SCH ×2 (08:17→16:23)
[2020-09-27] MEDS: BALSAM PERU/CASTOR OIL 60 GM OINT...G. TP SCH (08:18)
[2020-09-27] MEDS: ZINC SULFATE 50 MG CAP PO SCH (08:18)
[2020-09-27 08:53] LABS: ABG HCO3 33 mmol/L (22-26); ABG PCO2 77 mmHg (35-45); ABG PH 7.24 (7.35-7.45); ABG PO2 75 mmHg (80-105); ABG TCO2 35
[2020-09-27] MEDS: NOREPINEPHRINE 8 MG/D5W 250 ML 250 ML IV SCH (16:00)
[2020-09-27] MEDS: ENOXAPARIN SOD INJ 40 MG/0.4 ML SYR SC SCH (16:23)
[2020-09-27] MEDS: ROCURONIUM BROMIDE 250 ML IV SCH (16:53)
[2020-09-27] MEDS: INSULIN GLARGINE 100 UNITS/ML VIAL SQ SCH (20:52)
[2020-09-28] VITALS (24 sets, daily range): BP systolic 89–147; BP diastolic 60–79
[2020-09-28] MEDS: IPRATROPIUM BROMIDE 0.02% 2.5 ML NEB NEB SCH ×4 (01:00→19:00)
[2020-09-28] MEDS: FUROSEMIDE INJ 100 MG in SODIUM CHLORIDE 0.9% 100 ML 90 ML IV SCH ×2 (03:29→16:11)
[2020-09-28] MEDS: MEROPENEM 1GM 100 ML IV SCH ×3 (04:50→21:10)
[2020-09-28 05:43] LABS: BASOPHILS % 0.3 % (0.0-1.0); EOSINOPHILS % 0.3 % (0.0-6.0); HEMATOCRIT 28.1 % (34.2-44.1); HEMOGLOBIN 8.6 g/dL (12.0-16.0); LYMPHOCYTES # (AUTO) 0.3 (1.0-3.2); LYMPHOCYTES % 3.2 % (18.0-39.1); MEAN CORPUSCULAR HEMOGLOBIN 29.3 pg (28-32); MEAN CORPUSCULAR HGB CONC 30.6 g/dL (31-35); MEAN CORPUSCULAR VOLUME 95.6 fL (81-99); MONOCYTES # (AUTO) 0.5 (0.2-0.8); NEUTROPHILS # (AUTO) 9.3 (2.1-6.9); NEUTROPHILS % 90.1 % (38.7-80.0); PLATELET COUNT 293 x10e3/uL (140-360); RED BLOOD COUNT 2.94 x10e6/uL (3.6-5.1); RED CELL DISTRIBUTION WIDTH 14.6 % (11.7-14.4)
[2020-09-28 05:44] LABS: ALANINE AMINOTRANSFERASE 16 IU/L (0-55); ALBUMIN 2.3 g/dL (3.5-5.0); ALBUMIN/GLOBULIN RATIO 0.6 (0.8-2.0); ALKALINE PHOSPHATASE 82 IU/L (40-150); ANION GAP 12.5 mmol/L (8-16); BLOOD UREA NITROGEN 25 mg/dL (7-26); BUN/CREATININE RATIO 42 (6-25); CALCIUM 7.6 mg/dL (8.4-10.2); CARBON DIOXIDE 38 mmol/L (22-29); CHLORIDE 96 mmol/L (98-107); EST GLOMERULAR FILTRATION RATE > 60 ML/MIN (60-); GLUCOSE 178 mg/dL (74-118); POTASSIUM 3.5 mmol/L (3.5-5.1); SODIUM 143 mmol/L (136-145)
[2020-09-28] MEDS: MIDAZOLAM HCL 5MG/ML 10ML VIAL 100 ML IV PRN ×3 (06:20→22:36)
[2020-09-28] MEDS: LEVOTHYROXINE SODIUM 75 MCG TAB PO SCH (06:26)
[2020-09-28 07:14] LABS: ABG HCO3 42 mmol/L (22-26); ABG PCO2 76 mmHg (35-45); ABG PH 7.34 (7.35-7.45); ABG PO2 86 mmHg (80-105); ABG TCO2 44
[2020-09-28] MEDS: ASCORBIC ACID 500 MG TAB PO SCH ×2 (09:04→17:28)
[2020-09-28] MEDS: EYE LUBRICANT OPTH OINT 3.5GM TUBE OP SCH (09:04)
[2020-09-28] MEDS: VANCOMYCIN 1GM/NS 250 ML 250 ML IV SCH (09:04)
[2020-09-28] MEDS: FAMOTIDINE 20 MG/2 ML VIAL IV SCH ×2 (09:04→17:28)
[2020-09-28] MEDS: DOCUSATE SODIUM LIQD 100 MG/10 ML UDC NG SCH ×2 (09:04→21:20)
[2020-09-28] MEDS: BALSAM PERU/CASTOR OIL 60 GM OINT...G. TP SCH (09:04)
[2020-09-28] MEDS: ZINC SULFATE 50 MG CAP PO SCH (09:04)
[2020-09-28] MEDS ORDERED: POTASSIUM CHLORIDE 20MEQ/100ML 200 ML IV ONE (12:00)
[2020-09-28] MEDS: NOREPINEPHRINE 8 MG/D5W 250 ML 250 ML IV SCH (16:00)
[2020-09-28] MEDS: ROCURONIUM BROMIDE 250 ML IV SCH (16:11)
[2020-09-28] MEDS: ENOXAPARIN SOD INJ 40 MG/0.4 ML SYR SC SCH (17:28)
[2020-09-28] MEDS: INSULIN GLARGINE 100 UNITS/ML VIAL SQ SCH (21:00)
[2020-09-29] VITALS (25 sets, daily range): BP systolic 88–171; BP diastolic 54–76
[2020-09-29] MEDS: FUROSEMIDE INJ 100 MG in SODIUM CHLORIDE 0.9% 100 ML 90 ML IV SCH ×2
[2020-09-29] MEDS: IPRATROPIUM BROMIDE 0.02% 2.5 ML NEB NEB SCH ×4 (01:00→19:00)
[2020-09-29] MEDS: VANCOMYCIN 1GM/NS 250 ML 250 ML IV SCH ×2 (01:21→09:00)
[2020-09-29] MEDS: MIDAZOLAM HCL 5MG/ML 10ML VIAL 100 ML IV PRN ×3 (04:26→20:40)
[2020-09-29] MEDS: MEROPENEM 1GM 100 ML IV SCH ×3 (04:52→20:48)
[2020-09-29 05:39] LABS: BASOPHILS % 0.1 % (0.0-1.0); EOSINOPHILS % 0.3 % (0.0-6.0); HEMATOCRIT 26.9 % (34.2-44.1); HEMOGLOBIN 8.1 g/dL (12.0-16.0); LYMPHOCYTES # (AUTO) 0.5 (1.0-3.2); LYMPHOCYTES % 5.8 % (18.0-39.1); MEAN CORPUSCULAR HEMOGLOBIN 28.3 pg (28-32); MEAN CORPUSCULAR HGB CONC 30.1 g/dL (31-35); MEAN CORPUSCULAR VOLUME 94.1 fL (81-99); MONOCYTES # (AUTO) 0.4 (0.2-0.8); MONOCYTES % 4.8 % (4.4-11.3); NEUTROPHILS # (AUTO) 7.6 (2.1-6.9); NEUTROPHILS % 88.1 % (38.7-80.0); PLATELET COUNT 273 x10e3/uL (140-360); RED BLOOD COUNT 2.86 x10e6/uL (3.6-5.1); RED CELL DISTRIBUTION WIDTH 14.6 % (11.7-14.4)
[2020-09-29 06:05] LABS: ALANINE AMINOTRANSFERASE 15 IU/L (0-55); ALBUMIN 2.1 g/dL (3.5-5.0); ALBUMIN/GLOBULIN RATIO 0.5 (0.8-2.0); ALKALINE PHOSPHATASE 74 IU/L (40-150); ANION GAP 13.2 mmol/L (8-16); BLOOD UREA NITROGEN 21 mg/dL (7-26); BUN/CREATININE RATIO 39 (6-25); CALCIUM 7.7 mg/dL (8.4-10.2); CHLORIDE 92 mmol/L (98-107); CREATININE, SERUM 0.54 mg/dL (0.57-1.11); EST GLOMERULAR FILTRATION RATE > 60 ML/MIN (60-); GLUCOSE 155 mg/dL (74-118); POTASSIUM 3.2 mmol/L (3.5-5.1); SODIUM 147 mmol/L (136-145)
[2020-09-29 06:11] LABS: CARBON DIOXIDE 45 mmol/L (22-29)
[2020-09-29] MEDS: FENTANYL 2000MCG/NS 250 250 ML IV PRN ×2 (06:40→19:50)
[2020-09-29] MEDS: LEVOTHYROXINE SODIUM 75 MCG TAB PO SCH (06:48)
[2020-09-29] MEDS ORDERED: POTASSIUM CHLORIDE 20MEQ/100ML 200 ML IV ONE (07:00)
[2020-09-29 07:32] LABS: ABG HCO3 54 mmol/L (22-26); ABG PCO2 93 mmHg (35-45); ABG PH 7.37 (7.35-7.45); ABG PO2 114 mmHg (80-105); ABG TCO2 50
[2020-09-29 07:45] LABS: ANISOCYTOSIS SLIGHT; BAND NEUTROPHILS % (MANUAL) 3 %; LYMPHOCYTES % (MANUAL) 6 % (19-48); MONOCYTES % (MANUAL) 3 % (3.4-9.0); NEUTROPHILS % (MANUAL) 88 % (40-74); PLATELET ESTIMATE ADEQUATE; RBC MORPHOLOGY COMMENT ABNORMAL
[2020-09-29 07:46] LABS: PLATELET MORPHOLOGY COMMENT NORMAL
[2020-09-29] MEDS: FAMOTIDINE 20 MG/2 ML VIAL IV SCH ×2 (08:16→16:13)
[2020-09-29] MEDS: EYE LUBRICANT OPTH OINT 3.5GM TUBE OP SCH (08:16)
[2020-09-29] MEDS: ASCORBIC ACID 500 MG TAB PO SCH ×2 (08:16→16:13)
[2020-09-29] MEDS: BALSAM PERU/CASTOR OIL 60 GM OINT...G. TP SCH (08:16)
[2020-09-29] MEDS: DOCUSATE SODIUM LIQD 100 MG/10 ML UDC NG SCH ×2 (08:16→21:32)
[2020-09-29] MEDS: ZINC SULFATE 50 MG CAP PO SCH (08:16)
[2020-09-29] MEDS: ACETAZOLAMIDE SODIUM 500 MG/VIAL IV SCH ×2 (10:13→21:32)
[2020-09-29] MEDS: ROCURONIUM BROMIDE 250 ML IV SCH (15:15)
[2020-09-29] MEDS: NOREPINEPHRINE 8 MG/D5W 250 ML 250 ML IV SCH (16:00)
[2020-09-29] MEDS: ENOXAPARIN SOD INJ 40 MG/0.4 ML SYR SC SCH (16:13)
[2020-09-29 16:35] LABS: ABG HCO3 51 mmol/L (22-26); ABG PCO2 99 mmHg (35-45); ABG PH 7.32 (7.35-7.45); ABG PO2 72 mmHg (80-105); ABG TCO2 50
[2020-09-29] MEDS: INSULIN GLARGINE 100 UNITS/ML VIAL SQ SCH (21:32)
[2020-09-30] VITALS (25 sets, daily range): BP systolic 90–184; BP diastolic 50–75
[2020-09-30] MEDS: IPRATROPIUM BROMIDE 0.02% 2.5 ML NEB NEB SCH (01:00)
[2020-09-30] MEDS: MIDAZOLAM HCL 5MG/ML 10ML VIAL 100 ML IV PRN ×5 (01:45→22:30)
[2020-09-30] MEDS: FENTANYL 2000MCG/NS 250 250 ML IV PRN ×4 (02:27→23:48)
[2020-09-30 05:52] LABS: BASOPHILS # (AUTO) 0.1 (0.0-0.1); BASOPHILS % 0.6 % (0.0-1.0); EOSINOPHILS # (AUTO) 0.4 (0.0-0.4); EOSINOPHILS % 4.7 % (0.0-6.0); HEMATOCRIT 27.4 % (34.2-44.1); HEMOGLOBIN 8.1 g/dL (12.0-16.0); LYMPHOCYTES # (AUTO) 0.8 (1.0-3.2); LYMPHOCYTES % 9.3 % (18.0-39.1); MEAN CORPUSCULAR HEMOGLOBIN 27.7 pg (28-32); MEAN CORPUSCULAR HGB CONC 29.6 g/dL (31-35); MEAN CORPUSCULAR VOLUME 93.8 fL (81-99); MONOCYTES # (AUTO) 0.5 (0.2-0.8); MONOCYTES % 5.4 % (4.4-11.3); NEUTROPHILS # (AUTO) 6.6 (2.1-6.9); NEUTROPHILS % 79.3 % (38.7-80.0); PLATELET COUNT 286 x10e3/uL (140-360); RED BLOOD COUNT 2.92 x10e6/uL (3.6-5.1); RED CELL DISTRIBUTION WIDTH 14.6 % (11.7-14.4)
[2020-09-30] MEDS: MEROPENEM 1GM 100 ML IV SCH ×3 (06:09→20:51)
[2020-09-30] MEDS: LEVOTHYROXINE SODIUM 75 MCG TAB PO SCH (06:09)
[2020-09-30 06:24] LABS: ALANINE AMINOTRANSFERASE 13 IU/L (0-55); ALBUMIN 2.1 g/dL (3.5-5.0); ALBUMIN/GLOBULIN RATIO 0.6 (0.8-2.0); ALKALINE PHOSPHATASE 76 IU/L (40-150); ANION GAP 10.1 mmol/L (8-16); BLOOD UREA NITROGEN 22 mg/dL (7-26); BUN/CREATININE RATIO 45 (6-25); CALCIUM 8.1 mg/dL (8.4-10.2); CHLORIDE 93 mmol/L (98-107); CREATININE, SERUM 0.49 mg/dL (0.57-1.11); EST GLOMERULAR FILTRATION RATE > 60 ML/MIN (60-); GLUCOSE 119 mg/dL (74-118); POTASSIUM 3.1 mmol/L (3.5-5.1); SODIUM 146 mmol/L (136-145)
[2020-09-30 06:31] LABS: CARBON DIOXIDE 46 mmol/L (22-29)
[2020-09-30] MEDS: ASCORBIC ACID 500 MG TAB PO SCH ×2 (08:13→16:42)
[2020-09-30] MEDS: VANCOMYCIN 1GM/NS 250 ML 250 ML IV SCH ×2 (08:13→08:26)
[2020-09-30] MEDS: EYE LUBRICANT OPTH OINT 3.5GM TUBE OP SCH (08:13)
[2020-09-30] MEDS: DOCUSATE SODIUM LIQD 100 MG/10 ML UDC NG SCH ×2 (08:13→20:51)
[2020-09-30] MEDS: ZINC SULFATE 50 MG CAP PO SCH (08:13)
[2020-09-30] MEDS: FAMOTIDINE 20 MG/2 ML VIAL IV SCH ×2 (08:13→16:42)
[2020-09-30] MEDS: BALSAM PERU/CASTOR OIL 60 GM OINT...G. TP SCH (08:14)
[2020-09-30 10:52] LABS: ABG HCO3 48 mmol/L (22-26); ABG PCO2 76 mmHg (35-45); ABG PO2 59 mmHg (80-105); ABG TCO2 50
[2020-09-30] MEDS: ROCURONIUM BROMIDE 250 ML IV SCH (15:15)
[2020-09-30] MEDS: NOREPINEPHRINE 8 MG/D5W 250 ML 250 ML IV SCH (16:00)
[2020-09-30] MEDS: ENOXAPARIN SOD INJ 40 MG/0.4 ML SYR SC SCH (16:42)
[2020-09-30] MEDS: INSULIN GLARGINE 100 UNITS/ML VIAL SQ SCH (22:00)
[2020-10-01] VITALS (26 sets, daily range): BP systolic 109–148; BP diastolic 57–68
[2020-10-01] MEDS: INSULIN REGULAR, HUMAN 3ML VL 100 UNIT in SODIUM CHLORIDE 0.9% 100 ML 99 ML IV SCH ×2
[2020-10-01] MEDS: MIDAZOLAM HCL 5MG/ML 10ML VIAL 100 ML IV PRN ×4 (02:55→19:08)
[2020-10-01] MEDS: MEROPENEM 1GM 100 ML IV SCH ×3 (05:00→20:30)
[2020-10-01 05:02] LABS: BASOPHILS # (AUTO) 0.1 (0.0-0.1); BASOPHILS % 0.5 % (0.0-1.0); EOSINOPHILS # (AUTO) 0.3 (0.0-0.4); HEMATOCRIT 28.7 % (34.2-44.1); HEMOGLOBIN 8.4 g/dL (12.0-16.0); LYMPHOCYTES # (AUTO) 0.7 (1.0-3.2); LYMPHOCYTES % 6.3 % (18.0-39.1); MEAN CORPUSCULAR HEMOGLOBIN 27.8 pg (28-32); MEAN CORPUSCULAR HGB CONC 29.3 g/dL (31-35); MONOCYTES # (AUTO) 0.5 (0.2-0.8); MONOCYTES % 4.3 % (4.4-11.3); NEUTROPHILS # (AUTO) 9.8 (2.1-6.9); NEUTROPHILS % 84.8 % (38.7-80.0); PLATELET COUNT 275 x10e3/uL (140-360); RED BLOOD COUNT 3.02 x10e6/uL (3.6-5.1); RED CELL DISTRIBUTION WIDTH 15.3 % (11.7-14.4)
[2020-10-01 05:30] LABS: ANION GAP 11.4 mmol/L (8-16); BLOOD UREA NITROGEN 20 mg/dL (7-26); BUN/CREATININE RATIO 45 (6-25); CALCIUM 8.2 mg/dL (8.4-10.2); CHLORIDE 96 mmol/L (98-107); CREATININE, SERUM 0.44 mg/dL (0.57-1.11); EST GLOMERULAR FILTRATION RATE > 60 ML/MIN (60-); GLUCOSE 93 mg/dL (74-118); POTASSIUM 3.4 mmol/L (3.5-5.1); SODIUM 146 mmol/L (136-145)
[2020-10-01 05:40] LABS: CARBON DIOXIDE 42 mmol/L (22-29)
[2020-10-01] MEDS: LEVOTHYROXINE SODIUM 75 MCG TAB PO SCH (06:19)
[2020-10-01] MEDS: FENTANYL 2000MCG/NS 250 250 ML IV PRN ×3 (06:20→20:40)
[2020-10-01] MEDS: FAMOTIDINE 20 MG/2 ML VIAL IV SCH ×2 (08:07→17:41)
[2020-10-01] MEDS: EYE LUBRICANT OPTH OINT 3.5GM TUBE OP SCH (08:08)
[2020-10-01] MEDS: ASCORBIC ACID 500 MG TAB PO SCH ×2 (08:08→17:41)
[2020-10-01] MEDS: DOCUSATE SODIUM LIQD 100 MG/10 ML UDC NG SCH ×2 (08:08→21:12)
[2020-10-01] MEDS: ZINC SULFATE 50 MG CAP PO SCH (08:08)
[2020-10-01] MEDS: VANCOMYCIN 1GM/NS 250 ML 250 ML IV SCH (08:08)
[2020-10-01] MEDS: BALSAM PERU/CASTOR OIL 60 GM OINT...G. TP SCH (08:08)
[2020-10-01] MEDS ORDERED: POTASSIUM CHLORIDE 20MEQ/100ML 200 ML IV ONE (10:00)
[2020-10-01] MEDS: ROCURONIUM BROMIDE 250 ML IV SCH (11:29)
[2020-10-01] MEDS: ENOXAPARIN SOD INJ 40 MG/0.4 ML SYR SC SCH (17:41)
[2020-10-01] MEDS: INSULIN GLARGINE 100 UNITS/ML VIAL SQ SCH (21:13)
[2020-10-02] VITALS (25 sets, daily range): BP systolic 84–134; BP diastolic 56–76
[2020-10-02] MEDS: MIDAZOLAM HCL 5MG/ML 10ML VIAL 100 ML IV PRN ×4 (00:08→15:10)
[2020-10-02] MEDS: FENTANYL 2000MCG/NS 250 250 ML IV PRN ×4 (03:01→23:10)
[2020-10-02] MEDS: MEROPENEM 1GM 100 ML IV SCH ×3 (04:12→20:30)
[2020-10-02 04:58] LABS: BASOPHILS # (AUTO) 0.1 (0.0-0.1); BASOPHILS % 0.6 % (0.0-1.0); EOSINOPHILS # (AUTO) 0.2 (0.0-0.4); EOSINOPHILS % 1.4 % (0.0-6.0); HEMOGLOBIN 8.8 g/dL (12.0-16.0); LYMPHOCYTES # (AUTO) 0.6 (1.0-3.2); LYMPHOCYTES % 4.8 % (18.0-39.1); MEAN CORPUSCULAR HEMOGLOBIN 28.1 pg (28-32); MEAN CORPUSCULAR HGB CONC 28.4 g/dL (31-35); MONOCYTES # (AUTO) 0.4 (0.2-0.8); MONOCYTES % 2.9 % (4.4-11.3); NEUTROPHILS % 88.4 % (38.7-80.0); PLATELET COUNT 261 x10e3/uL (140-360); RED BLOOD COUNT 3.13 x10e6/uL (3.6-5.1); RED CELL DISTRIBUTION WIDTH 15.3 % (11.7-14.4)
[2020-10-02 05:38] LABS: ALANINE AMINOTRANSFERASE 13 IU/L (0-55); ALBUMIN 1.8 g/dL (3.5-5.0); ALBUMIN/GLOBULIN RATIO 0.4 (0.8-2.0); ALKALINE PHOSPHATASE 84 IU/L (40-150); ANION GAP 8.1 mmol/L (8-16); BLOOD UREA NITROGEN 19 mg/dL (7-26); BUN/CREATININE RATIO 40 (6-25); CALCIUM 8.5 mg/dL (8.4-10.2); CHLORIDE 98 mmol/L (98-107); CREATININE, SERUM 0.48 mg/dL (0.57-1.11); EST GLOMERULAR FILTRATION RATE > 60 ML/MIN (60-); GLUCOSE 147 mg/dL (74-118); POTASSIUM 4.1 mmol/L (3.5-5.1); SODIUM 146 mmol/L (136-145)
[2020-10-02 05:41] LABS: CARBON DIOXIDE 44 mmol/L (22-29)
[2020-10-02] MEDS: LEVOTHYROXINE SODIUM 75 MCG TAB PO SCH (06:09)
[2020-10-02 07:14] LABS: ABG PCO2 106 mmHg (35-45); ABG PH 7.24 (7.35-7.45)
[2020-10-02 07:15] LABS: ABG HCO3 46 mmol/L (22-26); ABG PO2 60 mmHg (80-105); ABG TCO2 50
[2020-10-02 07:37] LABS: BAND NEUTROPHILS % (MANUAL) 3 %; LYMPHOCYTES % (MANUAL) 2 % (19-48); MONOCYTES % (MANUAL) 3 % (3.4-9.0); NEUTROPHILS % (MANUAL) 92 % (40-74); PLATELET ESTIMATE ADEQUATE; PLATELET MORPHOLOGY COMMENT NORMAL
[2020-10-02 07:38] LABS: TEAR DROP CELLS FEW
[2020-10-02 07:39] LABS: POLYCHROMASIA FEW; RBC MORPHOLOGY COMMENT ABNORMAL
[2020-10-02 07:40] LABS: HYPOCHROMASIA SLIGHT
[2020-10-02] MEDS: FAMOTIDINE 20 MG/2 ML VIAL IV SCH ×2 (09:12→16:48)
[2020-10-02] MEDS: ZINC SULFATE 50 MG CAP PO SCH (09:12)
[2020-10-02] MEDS: DOCUSATE SODIUM LIQD 100 MG/10 ML UDC NG SCH ×2 (09:12→21:28)
[2020-10-02] MEDS: BALSAM PERU/CASTOR OIL 60 GM OINT...G. TP SCH (09:12)
[2020-10-02] MEDS: ASCORBIC ACID 500 MG TAB PO SCH ×2 (09:12→16:48)
[2020-10-02] MEDS: EYE LUBRICANT OPTH OINT 3.5GM TUBE OP SCH (09:12)
[2020-10-02] MEDS: VANCOMYCIN 1GM/NS 250 ML 250 ML IV SCH (10:30)
[2020-10-02] MEDS: IPRATROPIUM BROMIDE 0.02% 2.5 ML NEB NEB SCH ×2 (13:00→19:00)
[2020-10-02] MEDS: ACETAZOLAMIDE 250 MG TAB PO SCH ×2 (13:33→21:29)
[2020-10-02] MEDS ORDERED: ALBUMIN 25% 25GM 100ML 0.25 GM/ML BTL IV SCH (14:00)
[2020-10-02] MEDS: FUROSEMIDE INJ 100 MG in SODIUM CHLORIDE 0.9% 100 ML 90 ML IV SCH (14:36)
[2020-10-02] MEDS: ALBUMIN 25% 25GM 100ML 100 ML IV SCH ×2 (14:36→21:59)
[2020-10-02] MEDS: ROCURONIUM BROMIDE 250 ML IV SCH (14:36)
[2020-10-02 16:40] LABS: CLARITY,URINE SL CLOUDY (CLEAR); COLOR,URINE YELLOW (YELLOW); KETONES,URINE NEGATIVE (NEGATIVE); LEUKOCYTE ESTERASE ,URINE NEGATIVE (NEGATIVE); NITRITE,URINE NEGATIVE (NEGATIVE); PROTEIN,URINE DIPSTICK 2+ (NEGATIVE); URINE UROBILINOGEN 1 mg/dL (0.2 - 1)
[2020-10-02 16:52] LABS: AMORPHOUS SEDIMENT,URINE MANY (FEW); BACTERIA,URINE FEW /HPF; EPITHELIAL CELLS,URINE FEW /LPF
[2020-10-02 16:53] LABS: YEAST,URINE FEW
[2020-10-02] MEDS: INSULIN GLARGINE 100 UNITS/ML VIAL SQ SCH (21:30)
[2020-10-03] VITALS (25 sets, daily range): BP systolic 84–141; BP diastolic 54–72
[2020-10-03] MEDS: FUROSEMIDE INJ 100 MG in SODIUM CHLORIDE 0.9% 100 ML 90 ML IV SCH ×3 (00:12→23:20)
[2020-10-03] MEDS: IPRATROPIUM BROMIDE 0.02% 2.5 ML NEB NEB SCH ×4 (01:00→19:00)
[2020-10-03] MEDS: MIDAZOLAM HCL 5MG/ML 10ML VIAL 100 ML IV PRN ×5 (01:47→21:33)
[2020-10-03] MEDS ORDERED: HEPARIN SOD/SOD CHLORIDE 1,000 ML ONE (03:14)
[2020-10-03] MEDS: MEROPENEM 1GM 100 ML IV SCH ×3 (04:30→20:49)
[2020-10-03 04:44] LABS: BASOPHILS # (AUTO) 0.1 (0.0-0.1); BASOPHILS % 0.5 % (0.0-1.0); EOSINOPHILS # (AUTO) 0.2 (0.0-0.4); EOSINOPHILS % 2.1 % (0.0-6.0); HEMATOCRIT 30.6 % (34.2-44.1); HEMOGLOBIN 8.4 g/dL (12.0-16.0); LYMPHOCYTES # (AUTO) 0.6 (1.0-3.2); LYMPHOCYTES % 5.6 % (18.0-39.1); MEAN CORPUSCULAR HGB CONC 27.5 g/dL (31-35); MONOCYTES # (AUTO) 0.5 (0.2-0.8); MONOCYTES % 4.4 % (4.4-11.3); NEUTROPHILS # (AUTO) 8.7 (2.1-6.9); PLATELET COUNT 256 x10e3/uL (140-360); RED CELL DISTRIBUTION WIDTH 15.7 % (11.7-14.4)
[2020-10-03 05:04] LABS: ALANINE AMINOTRANSFERASE 16 IU/L (0-55); ALBUMIN 2.7 g/dL (3.5-5.0); ALBUMIN/GLOBULIN RATIO 0.7 (0.8-2.0); ALKALINE PHOSPHATASE 76 IU/L (40-150); ANION GAP 9.8 mmol/L (8-16); BLOOD UREA NITROGEN 19 mg/dL (7-26); BUN/CREATININE RATIO 36 (6-25); CALCIUM 8.7 mg/dL (8.4-10.2); CHLORIDE 95 mmol/L (98-107); CREATININE, SERUM 0.53 mg/dL (0.57-1.11); EST GLOMERULAR FILTRATION RATE > 60 ML/MIN (60-); GLUCOSE 135 mg/dL (74-118); POTASSIUM 3.8 mmol/L (3.5-5.1); SODIUM 149 mmol/L (136-145)
[2020-10-03 05:05] LABS: CARBON DIOXIDE 48 mmol/L (22-29)
[2020-10-03] MEDS: FENTANYL 2000MCG/NS 250 250 ML IV PRN ×3 (05:45→19:20)
[2020-10-03] MEDS: ALBUMIN 25% 25GM 100ML 100 ML IV SCH (06:00)
[2020-10-03] MEDS: LEVOTHYROXINE SODIUM 75 MCG TAB PO SCH (06:00)
[2020-10-03 07:05] LABS: ABG PCO2 123 mmHg (35-45); ABG PH 7.17 (7.35-7.45); ABG PO2 47 mmHg (80-105)
[2020-10-03 07:06] LABS: ABG HCO3 46 mmol/L (22-26); ABG TCO2 49
[2020-10-03 07:19] LABS: BAND NEUTROPHILS % (MANUAL) 2 %; EOSINOPHILS % (MANUAL) 2 % (0-7); HYPOCHROMASIA SLIGHT; LYMPHOCYTES % (MANUAL) 2 % (19-48); METAMYELOCYTES % (MANUAL) 1 % (0-0); MYELOCYTES % (MANUAL) 1 % (0-0); NEUTROPHILS % (MANUAL) 92 % (40-74)
[2020-10-03 07:22] LABS: PLATELET MORPHOLOGY COMMENT FEW LARGE; RBC MORPHOLOGY COMMENT ABNORMAL
[2020-10-03 07:23] LABS: PLATELET ESTIMATE ADEQUATE; SMUDGE CELLS FEW
[2020-10-03] MEDS ORDERED: INSULIN LISPRO 100 UNIT/1 ML 3ML VIAL SQ SCH (07:30)
[2020-10-03] MEDS ORDERED: SODIUM BICARBONATE 8.4% INJ 50 ML SYR IV STA (07:32)
[2020-10-03] MEDS: HYDROCHLOROTHIAZIDE 25 MG TAB PO SCH (08:12)
[2020-10-03] MEDS: FAMOTIDINE 20 MG/2 ML VIAL IV SCH ×2 (08:17→16:18)
[2020-10-03] MEDS: ZINC SULFATE 50 MG CAP PO SCH (08:17)
[2020-10-03] MEDS: ASCORBIC ACID 500 MG TAB PO SCH ×2 (08:17→16:18)
[2020-10-03] MEDS: VANCOMYCIN 1GM/NS 250 ML 250 ML IV SCH (08:17)
[2020-10-03] MEDS: EYE LUBRICANT OPTH OINT 3.5GM TUBE OP SCH (08:17)
[2020-10-03] MEDS: DOCUSATE SODIUM LIQD 100 MG/10 ML UDC NG SCH ×2 (08:17→20:49)
[2020-10-03] MEDS ORDERED: SODIUM BICARBONATE 8.4% SYRING 100 ML ONE (08:24)
[2020-10-03] MEDS: BALSAM PERU/CASTOR OIL 60 GM OINT...G. TP SCH (08:56)
[2020-10-03] MEDS: INSULIN LISPRO 100 UNIT/1 ML 3ML VIAL SQ SCH ×2 (11:39→17:57)
[2020-10-03] MEDS: ROCURONIUM BROMIDE 250 ML IV SCH (14:46)
[2020-10-03] MEDS: INSULIN GLARGINE 100 UNITS/ML VIAL SQ SCH (21:33)
[2020-10-04] VITALS (26 sets, daily range): BP systolic 71–154; BP diastolic 40–96
[2020-10-04] MEDS: INSULIN LISPRO 100 UNIT/1 ML 3ML VIAL SQ SCH ×5 (01:00→23:11)
[2020-10-04] MEDS: IPRATROPIUM BROMIDE 0.02% 2.5 ML NEB NEB SCH ×4 (01:00→19:00)
[2020-10-04] MEDS: MIDAZOLAM HCL 5MG/ML 10ML VIAL 100 ML IV PRN ×4 (03:29→18:20)
[2020-10-04] MEDS: FUROSEMIDE INJ 100 MG in SODIUM CHLORIDE 0.9% 100 ML 90 ML IV SCH ×3 (03:35→20:00)
[2020-10-04] MEDS ORDERED: FUROSEMIDE INJ 10 MG/ML 10 ML VIAL ONE (03:39)
[2020-10-04] MEDS ORDERED: SODIUM CHLORIDE 0.9% 100 ML ONE (03:39)
[2020-10-04] MEDS: LEVOTHYROXINE SODIUM 75 MCG TAB PO SCH (05:00)
[2020-10-04] MEDS: MEROPENEM 1GM 100 ML IV SCH ×3 (05:00→23:09)
[2020-10-04 06:20] LABS: BASOPHILS # (AUTO) 0.1 (0.0-0.1); BASOPHILS % 0.9 % (0.0-1.0); EOSINOPHILS # (AUTO) 0.1 (0.0-0.4); EOSINOPHILS % 1.1 % (0.0-6.0); HEMATOCRIT 30.8 % (34.2-44.1); HEMOGLOBIN 8.5 g/dL (12.0-16.0); LYMPHOCYTES # (AUTO) 0.8 (1.0-3.2); LYMPHOCYTES % 8.1 % (18.0-39.1); MEAN CORPUSCULAR HEMOGLOBIN 28.1 pg (28-32); MEAN CORPUSCULAR HGB CONC 27.6 g/dL (31-35); MEAN CORPUSCULAR VOLUME 101.7 fL (81-99); MONOCYTES # (AUTO) 0.7 (0.2-0.8); MONOCYTES % 6.4 % (4.4-11.3); NEUTROPHILS % 77.2 % (38.7-80.0); PLATELET COUNT 278 x10e3/uL (140-360); RED BLOOD COUNT 3.03 x10e6/uL (3.6-5.1); RED CELL DISTRIBUTION WIDTH 15.9 % (11.7-14.4)
[2020-10-04 06:38] LABS: ALANINE AMINOTRANSFERASE 41 IU/L (0-55); ALBUMIN 2.9 g/dL (3.5-5.0); ALBUMIN/GLOBULIN RATIO 0.8 (0.8-2.0); ALKALINE PHOSPHATASE 217 IU/L (40-150); BLOOD UREA NITROGEN 22 mg/dL (7-26); BUN/CREATININE RATIO 35 (6-25); CALCIUM 8.1 mg/dL (8.4-10.2); CHLORIDE 91 mmol/L (98-107); CREATININE, SERUM 0.62 mg/dL (0.57-1.11); EST GLOMERULAR FILTRATION RATE > 60 ML/MIN (60-); GLUCOSE 127 mg/dL (74-118); SODIUM 153 mmol/L (136-145)
[2020-10-04] MEDS: FENTANYL 2000MCG/NS 250 250 ML IV PRN ×2 (07:30→23:44)
[2020-10-04 07:35] LABS: ANION GAP 18.7 mmol/L (8-16); CARBON DIOXIDE 46 mmol/L (22-29); POTASSIUM 2.7 mmol/L (3.5-5.1)
[2020-10-04] MEDS ORDERED: ENOXAPARIN SOD INJ 40 MG/0.4 ML SYR SC ONE (08:30)
[2020-10-04] MEDS ORDERED: KCL 20 MEQ PACKET/ ORAL SOLN NG ONE (09:10)
[2020-10-04] MEDS: DOCUSATE SODIUM LIQD 100 MG/10 ML UDC NG SCH ×2 (09:23→23:09)
[2020-10-04] MEDS: HYDROCHLOROTHIAZIDE 25 MG TAB PO SCH (09:23)
[2020-10-04] MEDS: ZINC SULFATE 50 MG CAP PO SCH (09:23)
[2020-10-04] MEDS: FAMOTIDINE 20 MG/2 ML VIAL IV SCH ×2 (09:23→17:52)
[2020-10-04] MEDS: EYE LUBRICANT OPTH OINT 3.5GM TUBE OP SCH (09:23)
[2020-10-04] MEDS: ASCORBIC ACID 500 MG TAB PO SCH ×2 (09:23→17:52)
[2020-10-04] MEDS: BALSAM PERU/CASTOR OIL 60 GM OINT...G. TP SCH (09:23)
[2020-10-04] MEDS ORDERED: POTASSIUM CHLORIDE 20MEQ/100ML 100 ML IV ONE (10:00)
[2020-10-04 10:46] LABS: ABG PH 7.28 (7.35-7.45)
[2020-10-04 10:48] LABS: ABG HCO3 55 mmol/L (22-26); ABG PCO2 117 mmHg (35-45); ABG PO2 52 mmHg (80-105); ABG TCO2 50
[2020-10-04] MEDS: ENOXAPARIN SOD INJ 40 MG/0.4 ML SYR SC SCH (12:53)
[2020-10-04] MEDS: ROCURONIUM BROMIDE 250 ML IV SCH (18:08)
[2020-10-04] MEDS ORDERED: SODIUM CHLORIDE 0.9% 1000ML 2,000 ML ONE (19:14)
[2020-10-04] MEDS ORDERED: ALBUMIN 25% 12.5GM 0.25 GM/ML BTL IV PRN (19:45)
[2020-10-04] MEDS ORDERED: HEPARIN SOD (PORCINE) 1000 UNIT/ML SDV IV PRN (19:45)
[2020-10-04] MEDS ORDERED: SODIUM CHLORIDE 0.9% 1000ML 2,000 ML IV PRN (19:45)
[2020-10-04] MEDS ORDERED: MANNITOL 25% 12.5GM/50 ML VIAL IV PRN (19:45)
[2020-10-04] MEDS ORDERED: ALBUMIN 25% 25GM 100ML 0.25 GM/ML BTL IV PRN (19:45)
[2020-10-04] MEDS ORDERED: ALBUMIN 25% 12.5GM 50ML 100 ML IV ONE (19:47)
[2020-10-04] MEDS ORDERED: VASOPRESSIN INJ 20 UNIT/ML VIAL ONE (20:13)
[2020-10-04] MEDS ORDERED: DEXTROSE 5% 100ML 100 ML IV ONE (20:14)
[2020-10-04] MEDS ORDERED: VASOPRESSIN 60 UNIT in DEXTROSE 5% 50ML 57 ML IV PRN (20:15)
[2020-10-04] MEDS ORDERED: NOREPINEPHRINE INJ 4MG/4ML 8 MG in DEXTROSE 5% 250ML 250 ML IV PRN (20:30)
[2020-10-04] MEDS ORDERED: NOREPINEPHRINE 8 MG/D5W 250 ML 250 ML ONE (20:31)
[2020-10-04] MEDS ORDERED: SODIUM BICARBONATE 8.4% SYRING 100 ML ONE (21:22)
[2020-10-04 21:45] LABS: ABG PCO2 130 mmHg (35-45); ABG PH 7.23 (7.35-7.45)
[2020-10-04 21:46] LABS: ABG PO2 24 mmHg (80-105)
[2020-10-04] MEDS: INSULIN GLARGINE 100 UNITS/ML VIAL SQ SCH (23:10)
[2020-10-05] VITALS (25 sets, daily range): BP systolic 85–168; BP diastolic 47–125
[2020-10-05] MEDS ORDERED: SODIUM BICARBONATE 8.4% INJ 50 ML SYR IV STA (00:02)
[2020-10-05] MEDS: IPRATROPIUM BROMIDE 0.02% 2.5 ML NEB NEB SCH ×4 (01:00→19:00)
[2020-10-05] MEDS: MEROPENEM 1GM 100 ML IV SCH ×3 (05:00→20:00)
[2020-10-05] MEDS: LEVOTHYROXINE SODIUM 75 MCG TAB PO SCH (05:00)
[2020-10-05 05:30] LABS: BASOPHILS # (AUTO) 0.1 (0.0-0.1); BASOPHILS % 0.6 % (0.0-1.0); EOSINOPHILS % 0.1 % (0.0-6.0); HEMATOCRIT 30.3 % (34.2-44.1); HEMOGLOBIN 8.2 g/dL (12.0-16.0); LYMPHOCYTES # (AUTO) 0.7 (1.0-3.2); LYMPHOCYTES % 3.9 % (18.0-39.1); MEAN CORPUSCULAR HEMOGLOBIN 28.5 pg (28-32); MEAN CORPUSCULAR HGB CONC 27.1 g/dL (31-35); MEAN CORPUSCULAR VOLUME 105.2 fL (81-99); MONOCYTES # (AUTO) 1.4 (0.2-0.8); MONOCYTES % 7.8 % (4.4-11.3); NEUTROPHILS % 82.7 % (38.7-80.0); PLATELET COUNT 147 x10e3/uL (140-360); RED BLOOD COUNT 2.88 x10e6/uL (3.6-5.1); RED CELL DISTRIBUTION WIDTH 15.6 % (11.7-14.4)
[2020-10-05 05:46] LABS: ALANINE AMINOTRANSFERASE 29 IU/L (0-55); ALBUMIN 2.9 g/dL (3.5-5.0); ALBUMIN/GLOBULIN RATIO 0.9 (0.8-2.0); ALKALINE PHOSPHATASE 152 IU/L (40-150); BLOOD UREA NITROGEN 25 mg/dL (7-26); BUN/CREATININE RATIO 32 (6-25); CALCIUM 7.8 mg/dL (8.4-10.2); CHLORIDE 90 mmol/L (98-107); CREATININE, SERUM 0.77 mg/dL (0.57-1.11); EST GLOMERULAR FILTRATION RATE > 60 ML/MIN (60-); GLUCOSE 141 mg/dL (74-118); POTASSIUM 3.4 mmol/L (3.5-5.1); SODIUM 154 mmol/L (136-145)
[2020-10-05] MEDS: INSULIN LISPRO 100 UNIT/1 ML 3ML VIAL SQ SCH ×3 (06:45→18:31)
[2020-10-05 07:11] LABS: ANION GAP 20.4 mmol/L (8-16)
[2020-10-05 07:14] LABS: CARBON DIOXIDE 47 mmol/L (22-29)
[2020-10-05] MEDS: HYDROCHLOROTHIAZIDE 25 MG TAB PO SCH (07:22)
[2020-10-05 07:55] LABS: BAND NEUTROPHILS % (MANUAL) 2 %; LYMPHOCYTES % (MANUAL) 7 % (19-48); METAMYELOCYTES % (MANUAL) 2 % (0-0); MONOCYTES % (MANUAL) 3 % (3.4-9.0); NEUTROPHILS % (MANUAL) 86 % (40-74); NUCLEATED RED BLOOD CELLS 2; PLATELET ESTIMATE ADEQUATE; PLATELET MORPHOLOGY COMMENT NORMAL; POLYCHROMASIA FEW
[2020-10-05 07:56] LABS: ANISOCYTOSIS SLIGHT; RBC MORPHOLOGY COMMENT NORMAL
[2020-10-05] MEDS: BALSAM PERU/CASTOR OIL 60 GM OINT...G. TP SCH (08:34)
[2020-10-05] MEDS: ZINC SULFATE 50 MG CAP PO SCH (08:34)
[2020-10-05] MEDS: DOCUSATE SODIUM LIQD 100 MG/10 ML UDC NG SCH ×2 (08:34→21:00)
[2020-10-05] MEDS: FAMOTIDINE 20 MG/2 ML VIAL IV SCH ×2 (08:34→17:14)
[2020-10-05] MEDS: ASCORBIC ACID 500 MG TAB PO SCH ×2 (08:34→17:14)
[2020-10-05] MEDS: EYE LUBRICANT OPTH OINT 3.5GM TUBE OP SCH (08:34)
[2020-10-05] MEDS: MIDAZOLAM HCL 5MG/ML 10ML VIAL 100 ML IV PRN ×3 (08:34→21:20)
[2020-10-05 08:40] LABS: ABG PH 7.16 (7.35-7.45)
[2020-10-05 08:41] LABS: ABG PO2 65 mmHg (80-105)
[2020-10-05 08:42] LABS: ABG HCO3 0 mmol/L (22-26); ABG PCO2 130 mmHg (35-45); ABG TCO2 0
[2020-10-05] MEDS: FENTANYL 2000MCG/NS 250 250 ML IV PRN ×3 (10:28→19:57)
[2020-10-05] MEDS ORDERED: SODIUM BICARBONATE 8.4% INJ 50 ML SYR IV NR (11:15)
[2020-10-05] MEDS: FUROSEMIDE INJ 100 MG in SODIUM CHLORIDE 0.9% 100 ML 90 ML IV SCH (16:05)
[2020-10-05] MEDS: ROCURONIUM BROMIDE 250 ML IV SCH ×2 (16:05→17:14)
[2020-10-05] MEDS: ENOXAPARIN SOD INJ 40 MG/0.4 ML SYR SC SCH (17:14)
[2020-10-05] MEDS ORDERED: POTASSIUM CHLORIDE 20MEQ/15ML UDC NG ONE (17:15)
[2020-10-05] MEDS ORDERED: KCL 20 MEQ PACKET/ ORAL SOLN NG ONE (17:45)
[2020-10-05] MEDS: INSULIN GLARGINE 100 UNITS/ML VIAL SQ SCH (21:00)
[2020-10-05] MEDS ORDERED: HEPARIN SOD/SOD CHLORIDE 1,000 ML ONE (21:40)
[2020-10-06] VITALS (19 sets, daily range): BP systolic 98–148; BP diastolic 42–59
[2020-10-06] MEDS: INSULIN LISPRO 100 UNIT/1 ML 3ML VIAL SQ SCH ×4 (00:27→18:05)
[2020-10-06] MEDS: IPRATROPIUM BROMIDE 0.02% 2.5 ML NEB NEB SCH ×4 (01:00→19:00)
[2020-10-06] MEDS: MIDAZOLAM HCL 5MG/ML 10ML VIAL 100 ML IV PRN ×2 (04:15→10:56)
[2020-10-06] MEDS: MEROPENEM 1GM 100 ML IV SCH ×2 (04:35→12:22)
[2020-10-06 05:04] LABS: BASOPHILS % 0.3 % (0.0-1.0); EOSINOPHILS # (AUTO) 0.1 (0.0-0.4); EOSINOPHILS % 1.1 % (0.0-6.0); HEMATOCRIT 25.3 % (34.2-44.1); HEMOGLOBIN 7.3 g/dL (12.0-16.0); LYMPHOCYTES # (AUTO) 1.1 (1.0-3.2); LYMPHOCYTES % 8.9 % (18.0-39.1); MEAN CORPUSCULAR HEMOGLOBIN 28.1 pg (28-32); MEAN CORPUSCULAR HGB CONC 28.9 g/dL (31-35); MEAN CORPUSCULAR VOLUME 97.3 fL (81-99); MONOCYTES # (AUTO) 0.9 (0.2-0.8); MONOCYTES % 7.3 % (4.4-11.3); NEUTROPHILS # (AUTO) 9.5 (2.1-6.9); NEUTROPHILS % 77.4 % (38.7-80.0); PLATELET COUNT 162 x10e3/uL (140-360); RED CELL DISTRIBUTION WIDTH 15.8 % (11.7-14.4)
[2020-10-06 05:23] LABS: ALANINE AMINOTRANSFERASE 21 IU/L (0-55); ALBUMIN 2.5 g/dL (3.5-5.0); ALBUMIN/GLOBULIN RATIO 0.8 (0.8-2.0); ALKALINE PHOSPHATASE 118 IU/L (40-150); BLOOD UREA NITROGEN 34 mg/dL (7-26); BUN/CREATININE RATIO 40 (6-25); CHLORIDE 87 mmol/L (98-107); CREATININE, SERUM 0.85 mg/dL (0.57-1.11); EST GLOMERULAR FILTRATION RATE > 60 ML/MIN (60-); GLUCOSE 189 mg/dL (74-118); SODIUM 152 mmol/L (136-145)
[2020-10-06 05:32] LABS: ANION GAP 17.7 mmol/L (8-16)
[2020-10-06 05:33] LABS: CARBON DIOXIDE > 50 mmol/L (22-29); POTASSIUM 2.7 mmol/L (3.5-5.1)
[2020-10-06] MEDS: LEVOTHYROXINE SODIUM 75 MCG TAB PO SCH (06:43)
[2020-10-06] MEDS ORDERED: POTASSIUM CHLORIDE 20MEQ/100ML 200 ML IV ONE (07:30)
[2020-10-06] MEDS: HYDROCHLOROTHIAZIDE 25 MG TAB PO SCH (07:50)
[2020-10-06] MEDS: DOCUSATE SODIUM LIQD 100 MG/10 ML UDC NG SCH ×2 (07:50→21:42)
[2020-10-06] MEDS: ZINC SULFATE 50 MG CAP PO SCH (07:50)
[2020-10-06] MEDS: FAMOTIDINE 20 MG/2 ML VIAL IV SCH ×2 (07:50→17:56)
[2020-10-06] MEDS: ASCORBIC ACID 500 MG TAB PO SCH ×2 (07:50→17:56)
[2020-10-06] MEDS: EYE LUBRICANT OPTH OINT 3.5GM TUBE OP SCH (07:50)
[2020-10-06] MEDS: POTASSIUM CHLORIDE 20MEQ/100ML 100 ML IV SCH ×2 (07:50→12:21)
[2020-10-06 07:58] LABS: ABG HCO3 61 mmol/L (22-26); ABG PCO2 89 mmHg (35-45); ABG PH 7.44 (7.35-7.45); ABG PO2 48 mmHg (80-105); ABG TCO2 50
[2020-10-06] MEDS ORDERED: POTASSIUM CHLORIDE 20MEQ/15ML UDC NG SCH (09:00)
[2020-10-06] MEDS: FUROSEMIDE INJ 100 MG in SODIUM CHLORIDE 0.9% 100 ML 90 ML IV SCH (12:21)
[2020-10-06] MEDS: BALSAM PERU/CASTOR OIL 60 GM OINT...G. TP SCH (12:26)
[2020-10-06] MEDS: FENTANYL 2000MCG/NS 250 250 ML IV SCH (16:45)
[2020-10-06] MEDS: ENOXAPARIN SOD INJ 40 MG/0.4 ML SYR SC SCH (17:56)
[2020-10-06] MEDS: INSULIN GLARGINE 100 UNITS/ML VIAL SQ SCH (21:43)
[2020-10-07] VITALS (35 sets, daily range): BP systolic 108–159; BP diastolic 48–85
[2020-10-07] MEDS: INSULIN LISPRO 100 UNIT/1 ML 3ML VIAL SQ SCH ×4 (00:39→17:23)
[2020-10-07] MEDS: MIDAZOLAM HCL 5MG/ML 10ML VIAL 100 ML IV PRN ×4 (00:39→21:54)
[2020-10-07] MEDS: IPRATROPIUM BROMIDE 0.02% 2.5 ML NEB NEB SCH ×4 (01:00→19:35)
[2020-10-07] MEDS: FUROSEMIDE INJ 100 MG in SODIUM CHLORIDE 0.9% 100 ML 90 ML IV SCH (02:21)
[2020-10-07] MEDS: FENTANYL 2000MCG/NS 250 250 ML IV SCH ×3 (02:24→22:48)
[2020-10-07] MEDS: LEVOTHYROXINE SODIUM 75 MCG TAB PO SCH (05:54)
[2020-10-07 06:04] LABS: BASOPHILS % 0.2 % (0.0-1.0); EOSINOPHILS # (AUTO) 0.9 (0.0-0.4); EOSINOPHILS % 7.7 % (0.0-6.0); HEMATOCRIT 24.5 % (34.2-44.1); HEMOGLOBIN 7.1 g/dL (12.0-16.0); LYMPHOCYTES # (AUTO) 1.2 (1.0-3.2); LYMPHOCYTES % 9.6 % (18.0-39.1); MEAN CORPUSCULAR HEMOGLOBIN 28.2 pg (28-32); MEAN CORPUSCULAR VOLUME 97.2 fL (81-99); MONOCYTES # (AUTO) 0.8 (0.2-0.8); MONOCYTES % 6.3 % (4.4-11.3); NEUTROPHILS # (AUTO) 8.3 (2.1-6.9); NEUTROPHILS % 68.1 % (38.7-80.0); PLATELET COUNT 118 x10e3/uL (140-360); RED BLOOD COUNT 2.52 x10e6/uL (3.6-5.1); RED CELL DISTRIBUTION WIDTH 16.9 % (11.7-14.4)
[2020-10-07 06:25] LABS: ALANINE AMINOTRANSFERASE 17 IU/L (0-55); ALBUMIN 2.7 g/dL (3.5-5.0); ALBUMIN/GLOBULIN RATIO 0.8 (0.8-2.0); ALKALINE PHOSPHATASE 97 IU/L (40-150); BLOOD UREA NITROGEN 36 mg/dL (7-26); BUN/CREATININE RATIO 43 (6-25); CALCIUM 8.2 mg/dL (8.4-10.2); CHLORIDE 88 mmol/L (98-107); CREATININE, SERUM 0.83 mg/dL (0.57-1.11); EST GLOMERULAR FILTRATION RATE > 60 ML/MIN (60-); GLUCOSE 131 mg/dL (74-118); POTASSIUM 3.5 mmol/L (3.5-5.1); SODIUM 151 mmol/L (136-145)
[2020-10-07 06:28] LABS: ANION GAP 16.5 mmol/L (8-16)
[2020-10-07 06:29] LABS: CARBON DIOXIDE > 50 mmol/L (22-29)
[2020-10-07 08:00] LABS: ABG PH 7.42 (7.35-7.45)
[2020-10-07 08:01] LABS: ABG HCO3 58 mmol/L (22-26); ABG PCO2 89 mmHg (35-45); ABG PO2 56 mmHg (80-105); ABG TCO2 50
[2020-10-07] MEDS: KCL 20 MEQ PACKET/ ORAL SOLN NG SCH (09:00)
[2020-10-07] MEDS: FAMOTIDINE 20 MG/2 ML VIAL IV SCH ×2 (09:58→17:11)
[2020-10-07] MEDS: DOCUSATE SODIUM LIQD 100 MG/10 ML UDC NG SCH ×2 (09:58→21:52)
[2020-10-07] MEDS: BALSAM PERU/CASTOR OIL 60 GM OINT...G. TP SCH (09:59)
[2020-10-07] MEDS: ZINC SULFATE 50 MG CAP PO SCH (09:59)
[2020-10-07] MEDS: HYDROCHLOROTHIAZIDE 25 MG TAB PO SCH (09:59)
[2020-10-07] MEDS: ASCORBIC ACID 500 MG TAB PO SCH ×2 (09:59→17:12)
[2020-10-07] MEDS: EYE LUBRICANT OPTH OINT 3.5GM TUBE OP SCH (10:00)
[2020-10-07 10:50] LABS: EOSINOPHILS % (MANUAL) 11 % (0-7); HYPOCHROMASIA SLIGHT; LYMPHOCYTES % (MANUAL) 9 % (19-48); MONOCYTES % (MANUAL) 1 % (3.4-9.0); NEUTROPHILS % (MANUAL) 76 % (40-74); NUCLEATED RED BLOOD CELLS 2; PROMYELOCYTES % (MANUAL) 3 % (0-0)
[2020-10-07 10:51] LABS: ANISOCYTOSIS SLIGHT; PLATELET ESTIMATE SLIGHTLY DECREASED; PLATELET MORPHOLOGY COMMENT NORMAL; RBC MORPHOLOGY COMMENT ABNORMAL
[2020-10-07] MEDS ORDERED: ACETAZOLAMIDE 250 MG TAB PO SCH ×2 (13:00→17:00)
[2020-10-07] MEDS: ROCURONIUM BROMIDE 250 ML IV SCH (14:31)
[2020-10-07] MEDS: ENOXAPARIN SOD INJ 40 MG/0.4 ML SYR SC SCH (17:12)
[2020-10-07] MEDS: ACETAZOLAMIDE 250 MG TAB PO SCH (21:52)
[2020-10-07] MEDS: INSULIN GLARGINE 100 UNITS/ML VIAL SQ SCH (21:53)
[2020-10-08] VITALS (25 sets, daily range): BP systolic 105–131; BP diastolic 43–61
[2020-10-08] MEDS: INSULIN LISPRO 100 UNIT/1 ML 3ML VIAL SQ SCH ×5 (00:30→23:46)
[2020-10-08] MEDS: FUROSEMIDE INJ 100 MG in SODIUM CHLORIDE 0.9% 100 ML 90 ML IV SCH ×2 (00:32→15:46)
[2020-10-08] MEDS: IPRATROPIUM BROMIDE 0.02% 2.5 ML NEB NEB SCH ×4 (01:00→19:40)
[2020-10-08] MEDS: MIDAZOLAM HCL 5MG/ML 10ML VIAL 100 ML IV PRN ×3 (04:40→20:51)
[2020-10-08 05:02] LABS: BASOPHILS # (AUTO) 0.1 (0.0-0.1); BASOPHILS % 0.4 % (0.0-1.0); EOSINOPHILS # (AUTO) 0.9 (0.0-0.4); HEMATOCRIT 27.5 % (34.2-44.1); HEMOGLOBIN 7.7 g/dL (12.0-16.0); LYMPHOCYTES % 6.8 % (18.0-39.1); MEAN CORPUSCULAR HEMOGLOBIN 27.9 pg (28-32); MEAN CORPUSCULAR VOLUME 99.6 fL (81-99); MONOCYTES % 6.4 % (4.4-11.3); NEUTROPHILS % 73.5 % (38.7-80.0); PLATELET COUNT 142 x10e3/uL (140-360); RED BLOOD COUNT 2.76 x10e6/uL (3.6-5.1); RED CELL DISTRIBUTION WIDTH 17.1 % (11.7-14.4)
[2020-10-08 05:22] LABS: ALANINE AMINOTRANSFERASE 21 IU/L (0-55); ALBUMIN 2.5 g/dL (3.5-5.0); ALBUMIN/GLOBULIN RATIO 0.7 (0.8-2.0); ALKALINE PHOSPHATASE 90 IU/L (40-150); BLOOD UREA NITROGEN 38 mg/dL (7-26); BUN/CREATININE RATIO 53 (6-25); CALCIUM 8.2 mg/dL (8.4-10.2); CHLORIDE 84 mmol/L (98-107); CREATININE, SERUM 0.72 mg/dL (0.57-1.11); EST GLOMERULAR FILTRATION RATE > 60 ML/MIN (60-); GLUCOSE 127 mg/dL (74-118); POTASSIUM 3.5 mmol/L (3.5-5.1); SODIUM 148 mmol/L (136-145)
[2020-10-08] MEDS: LEVOTHYROXINE SODIUM 75 MCG TAB PO SCH (06:04)
[2020-10-08 06:44] LABS: ANION GAP 15.5 mmol/L (8-16)
[2020-10-08 06:45] LABS: CARBON DIOXIDE 52 mmol/L (22-29)
[2020-10-08] MEDS: DOCUSATE SODIUM LIQD 100 MG/10 ML UDC NG SCH ×2 (08:32→20:15)
[2020-10-08] MEDS: FAMOTIDINE 20 MG/2 ML VIAL IV SCH ×2 (08:32→16:26)
[2020-10-08] MEDS: EYE LUBRICANT OPTH OINT 3.5GM TUBE OP SCH (08:33)
[2020-10-08] MEDS: KCL 20 MEQ PACKET/ ORAL SOLN NG SCH (08:33)
[2020-10-08] MEDS: HYDROCHLOROTHIAZIDE 25 MG TAB PO SCH (08:37)
[2020-10-08] MEDS: ACETAZOLAMIDE 250 MG TAB PO SCH ×2 (08:37→20:15)
[2020-10-08] MEDS: ASCORBIC ACID 500 MG TAB PO SCH ×2 (08:37→16:26)
[2020-10-08] MEDS: BALSAM PERU/CASTOR OIL 60 GM OINT...G. TP SCH (08:37)
[2020-10-08] MEDS: ZINC SULFATE 50 MG CAP PO SCH (08:37)
[2020-10-08 08:44] LABS: ABG HCO3 57 mmol/L (22-26); ABG PCO2 116 mmHg (35-45); ABG PO2 64 mmHg (80-105); ABG TCO2 50
[2020-10-08] MEDS: FENTANYL 2000MCG/NS 250 250 ML IV SCH ×2 (09:11→20:50)
[2020-10-08] MEDS: ENOXAPARIN SOD INJ 40 MG/0.4 ML SYR SC SCH (16:26)
[2020-10-08] MEDS: ROCURONIUM BROMIDE 250 ML IV SCH (19:46)
[2020-10-08] MEDS: INSULIN GLARGINE 100 UNITS/ML VIAL SQ SCH (20:42)
[2020-10-09] VITALS (25 sets, daily range): BP systolic 108–135; BP diastolic 46–63
[2020-10-09] MEDS: IPRATROPIUM BROMIDE 0.02% 2.5 ML NEB NEB SCH ×4 (01:00→19:47)
[2020-10-09 05:03] LABS: BASOPHILS # (AUTO) 0.1 (0.0-0.1); BASOPHILS % 0.5 % (0.0-1.0); EOSINOPHILS # (AUTO) 0.2 (0.0-0.4); EOSINOPHILS % 1.4 % (0.0-6.0); HEMATOCRIT 26.9 % (34.2-44.1); HEMOGLOBIN 7.4 g/dL (12.0-16.0); LYMPHOCYTES # (AUTO) 0.7 (1.0-3.2); MEAN CORPUSCULAR HEMOGLOBIN 28.8 pg (28-32); MEAN CORPUSCULAR HGB CONC 27.5 g/dL (31-35); MEAN CORPUSCULAR VOLUME 104.7 fL (81-99); MONOCYTES # (AUTO) 0.9 (0.2-0.8); MONOCYTES % 6.2 % (4.4-11.3); NEUTROPHILS # (AUTO) 12.1 (2.1-6.9); NEUTROPHILS % 81.8 % (38.7-80.0); PLATELET COUNT 123 x10e3/uL (140-360); RED BLOOD COUNT 2.57 x10e6/uL (3.6-5.1); RED CELL DISTRIBUTION WIDTH 16.3 % (11.7-14.4)
[2020-10-09] MEDS: MIDAZOLAM HCL 5MG/ML 10ML VIAL 100 ML IV PRN ×3 (05:17→23:54)
[2020-10-09 05:24] LABS: ALANINE AMINOTRANSFERASE 21 IU/L (0-55); ALBUMIN 2.4 g/dL (3.5-5.0); ALBUMIN/GLOBULIN RATIO 0.6 (0.8-2.0); ALKALINE PHOSPHATASE 89 IU/L (40-150); BLOOD UREA NITROGEN 41 mg/dL (7-26); BUN/CREATININE RATIO 53 (6-25); CALCIUM 8.2 mg/dL (8.4-10.2); CHLORIDE 82 mmol/L (98-107); CREATININE, SERUM 0.77 mg/dL (0.57-1.11); EST GLOMERULAR FILTRATION RATE > 60 ML/MIN (60-); GLUCOSE 135 mg/dL (74-118); POTASSIUM 3.6 mmol/L (3.5-5.1); SODIUM 144 mmol/L (136-145)
[2020-10-09] MEDS: LEVOTHYROXINE SODIUM 75 MCG TAB PO SCH (05:50)
[2020-10-09 05:51] LABS: ANION GAP 16.6 mmol/L (8-16)
[2020-10-09 05:53] LABS: CARBON DIOXIDE 49 mmol/L (22-29)
[2020-10-09] MEDS: INSULIN LISPRO 100 UNIT/1 ML 3ML VIAL SQ SCH ×4 (06:13→20:22)
[2020-10-09 07:36] LABS: EOSINOPHILS % (MANUAL) 1 % (0-7); LYMPHOCYTES % (MANUAL) 4 % (19-48); METAMYELOCYTES % (MANUAL) 3 % (0-0); MONOCYTES % (MANUAL) 3 % (3.4-9.0); NEUTROPHILS % (MANUAL) 89 % (40-74); NUCLEATED RED BLOOD CELLS 1; PLATELET ESTIMATE SLIGHTLY DECREASED
[2020-10-09 07:37] LABS: POLYCHROMASIA FEW
[2020-10-09 07:38] LABS: PLATELET MORPHOLOGY COMMENT NORMAL; RBC MORPHOLOGY COMMENT ABNORMAL
[2020-10-09] MEDS: BALSAM PERU/CASTOR OIL 60 GM OINT...G. TP SCH (08:04)
[2020-10-09] MEDS: ACETAZOLAMIDE 250 MG TAB PO SCH ×2 (08:04→20:12)
[2020-10-09] MEDS: EYE LUBRICANT OPTH OINT 3.5GM TUBE OP SCH (08:04)
[2020-10-09] MEDS: FAMOTIDINE 20 MG/2 ML VIAL IV SCH ×2 (08:04→16:10)
[2020-10-09] MEDS: HYDROCHLOROTHIAZIDE 25 MG TAB PO SCH (08:04)
[2020-10-09] MEDS: DOCUSATE SODIUM LIQD 100 MG/10 ML UDC NG SCH ×2 (08:04→20:12)
[2020-10-09] MEDS: KCL 20 MEQ PACKET/ ORAL SOLN NG SCH (08:04)
[2020-10-09] MEDS: ZINC SULFATE 50 MG CAP PO SCH (08:04)
[2020-10-09] MEDS: ASCORBIC ACID 500 MG TAB PO SCH ×2 (08:05→16:10)
[2020-10-09] MEDS: FENTANYL 2000MCG/NS 250 250 ML IV SCH ×2 (08:10→20:25)
[2020-10-09 08:43] LABS: ABG PH 7.27 (7.35-7.45)
[2020-10-09 08:44] LABS: ABG HCO3 58 mmol/L (22-26); ABG PCO2 128 mmHg (35-45); ABG PO2 72 mmHg (80-105); ABG TCO2 > 50
[2020-10-09] MEDS: FUROSEMIDE INJ 100 MG in SODIUM CHLORIDE 0.9% 100 ML 90 ML IV SCH (09:18)
[2020-10-09] MEDS: ENOXAPARIN SOD INJ 40 MG/0.4 ML SYR SC SCH (16:10)
[2020-10-09] MEDS: INSULIN GLARGINE 100 UNITS/ML VIAL SQ SCH (20:24)
[2020-10-09] MEDS: ROCURONIUM BROMIDE 250 ML IV SCH (20:26)
[2020-10-10] VITALS (24 sets, daily range): BP systolic 124–148; BP diastolic 47–63
[2020-10-10] MEDS: IPRATROPIUM BROMIDE 0.02% 2.5 ML NEB NEB SCH ×4 (01:00→19:00)
[2020-10-10 04:30] LABS: BASOPHILS # (AUTO) 0.1 (0.0-0.1); BASOPHILS % 0.5 % (0.0-1.0); EOSINOPHILS # (AUTO) 0.3 (0.0-0.4); EOSINOPHILS % 1.6 % (0.0-6.0); HEMATOCRIT 24.3 % (34.2-44.1); LYMPHOCYTES # (AUTO) 0.8 (1.0-3.2); MEAN CORPUSCULAR HEMOGLOBIN 28.2 pg (28-32); MEAN CORPUSCULAR HGB CONC 28.4 g/dL (31-35); MEAN CORPUSCULAR VOLUME 99.2 fL (81-99); MONOCYTES # (AUTO) 1.1 (0.2-0.8); MONOCYTES % 5.6 % (4.4-11.3); NEUTROPHILS # (AUTO) 16.5 (2.1-6.9); NEUTROPHILS % 83.1 % (38.7-80.0); PLATELET COUNT 181 x10e3/uL (140-360); RED BLOOD COUNT 2.45 x10e6/uL (3.6-5.1)
[2020-10-10 04:37] LABS: HEMOGLOBIN 6.9 g/dL (12.0-16.0)
[2020-10-10 04:50] LABS: MAGNESIUM 2.2 MG/DL (1.3-2.1); PHOSPHORUS 3.5 MG/DL (2.3-4.7)
[2020-10-10 05:10] LABS: ALANINE AMINOTRANSFERASE 22 IU/L (0-55); ALBUMIN 2.2 g/dL (3.5-5.0); ALBUMIN/GLOBULIN RATIO 0.6 (0.8-2.0); ALKALINE PHOSPHATASE 98 IU/L (40-150); BLOOD UREA NITROGEN 40 mg/dL (7-26); BUN/CREATININE RATIO 54 (6-25); CALCIUM 8.3 mg/dL (8.4-10.2); CHLORIDE 79 mmol/L (98-107); CREATININE, SERUM 0.74 mg/dL (0.57-1.11); EST GLOMERULAR FILTRATION RATE > 60 ML/MIN (60-); GLUCOSE 123 mg/dL (74-118); POTASSIUM 3.3 mmol/L (3.5-5.1); SODIUM 142 mmol/L (136-145)
[2020-10-10] MEDS: FUROSEMIDE INJ 100 MG in SODIUM CHLORIDE 0.9% 100 ML 90 ML IV SCH (05:28)
[2020-10-10] MEDS ORDERED: FUROSEMIDE INJ 10 MG/ML 10 ML VIAL ONE (05:28)
[2020-10-10] MEDS ORDERED: SODIUM CHLORIDE 0.9% 100 ML ONE (05:31)
[2020-10-10] MEDS: LEVOTHYROXINE SODIUM 75 MCG TAB PO SCH (05:31)
[2020-10-10 05:37] LABS: ANION GAP 16.3 mmol/L (8-16)
[2020-10-10 05:39] LABS: CARBON DIOXIDE > 50 mmol/L (22-29)
[2020-10-10] MEDS: INSULIN LISPRO 100 UNIT/1 ML 3ML VIAL SQ SCH ×3 (06:16→19:20)
[2020-10-10] MEDS: FAMOTIDINE 20 MG/2 ML VIAL IV SCH ×2 (08:02→17:48)
[2020-10-10] MEDS: FENTANYL 2000MCG/NS 250 250 ML IV SCH ×2 (08:18→17:51)
[2020-10-10] MEDS: MIDAZOLAM HCL 5MG/ML 10ML VIAL 100 ML IV PRN ×2 (08:19→17:52)
[2020-10-10] MEDS: DOCUSATE SODIUM LIQD 100 MG/10 ML UDC NG SCH ×2 (08:23→21:07)
[2020-10-10] MEDS: KCL 20 MEQ PACKET/ ORAL SOLN NG SCH (08:24)
[2020-10-10] MEDS: ACETAZOLAMIDE 250 MG TAB PO SCH (08:24)
[2020-10-10] MEDS: EYE LUBRICANT OPTH OINT 3.5GM TUBE OP SCH (08:24)
[2020-10-10] MEDS: BALSAM PERU/CASTOR OIL 60 GM OINT...G. TP SCH (08:26)
[2020-10-10] MEDS: HYDROCHLOROTHIAZIDE 25 MG TAB PO SCH (08:26)
[2020-10-10] MEDS: ASCORBIC ACID 500 MG TAB PO SCH ×2 (08:26→17:48)
[2020-10-10] MEDS: ZINC SULFATE 50 MG CAP PO SCH (08:26)
[2020-10-10 09:25] LABS: ABG HCO3 55 mmol/L (22-26); ABG PCO2 110 mmHg (35-45); ABG PH 7.31 (7.35-7.45); ABG PO2 55 mmHg (80-105); ABG TCO2 50
[2020-10-10] MEDS ORDERED: ACETAMINOPHEN 325 MG TAB PO ONE (13:34)
[2020-10-10] MEDS ORDERED: HEPARIN SOD (PORCINE) 1000 UNIT/ML SDV IV PRN (13:45)
[2020-10-10] MEDS ORDERED: SODIUM CHLORIDE 0.9% 250ML 500 ML IV PRN (13:45)
[2020-10-10] MEDS ORDERED: SODIUM CHLORIDE 0.9% 250ML 250 ML IV ONE (13:45)
[2020-10-10] MEDS ORDERED: SODIUM CHLORIDE 0.9% 1000ML 2,000 ML IV PRN (13:45)
[2020-10-10] MEDS ORDERED: ALBUMIN 25% 12.5GM 0.25 GM/ML BTL IV PRN (13:45)
[2020-10-10] MEDS: ROCURONIUM BROMIDE 250 ML IV SCH (15:15)
[2020-10-10] MEDS: ENOXAPARIN SOD INJ 40 MG/0.4 ML SYR SC SCH (17:48)
[2020-10-10] MEDS: INSULIN GLARGINE 100 UNITS/ML VIAL SQ SCH (21:06)
[2020-10-11] VITALS (24 sets, daily range): BP systolic 110–146; BP diastolic 56–68
[2020-10-11] MEDS: INSULIN LISPRO 100 UNIT/1 ML 3ML VIAL SQ SCH ×4 (00:26→18:34)
[2020-10-11] MEDS: MIDAZOLAM HCL 5MG/ML 10ML VIAL 100 ML IV PRN ×2 (05:34→14:43)
[2020-10-11] MEDS: FENTANYL 2000MCG/NS 250 250 ML IV SCH ×2 (06:05→18:37)
[2020-10-11 06:15] LABS: BASOPHILS # (AUTO) 0.1 (0.0-0.1); BASOPHILS % 0.6 % (0.0-1.0); EOSINOPHILS # (AUTO) 0.2 (0.0-0.4); HEMOGLOBIN 7.5 g/dL (12.0-16.0); LYMPHOCYTES # (AUTO) 0.8 (1.0-3.2); LYMPHOCYTES % 3.7 % (18.0-39.1); MEAN CORPUSCULAR HGB CONC 28.8 g/dL (31-35); MONOCYTES # (AUTO) 1.3 (0.2-0.8); NEUTROPHILS # (AUTO) 17.7 (2.1-6.9); NEUTROPHILS % 83.1 % (38.7-80.0); PLATELET COUNT 231 x10e3/uL (140-360); RED BLOOD COUNT 2.68 x10e6/uL (3.6-5.1)
[2020-10-11] MEDS: LEVOTHYROXINE SODIUM 75 MCG TAB PO SCH (06:30)
[2020-10-11 06:33] LABS: ALANINE AMINOTRANSFERASE 22 IU/L (0-55); ALBUMIN/GLOBULIN RATIO 0.5 (0.8-2.0); ALKALINE PHOSPHATASE 90 IU/L (40-150); ANION GAP 12.2 mmol/L (8-16); BLOOD UREA NITROGEN 41 mg/dL (7-26); BUN/CREATININE RATIO 65 (6-25); CALCIUM 7.9 mg/dL (8.4-10.2); CHLORIDE 82 mmol/L (98-107); CREATININE, SERUM 0.63 mg/dL (0.57-1.11); EST GLOMERULAR FILTRATION RATE > 60 ML/MIN (60-); GLUCOSE 152 mg/dL (74-118); POTASSIUM 3.2 mmol/L (3.5-5.1); SODIUM 139 mmol/L (136-145)
[2020-10-11 06:35] LABS: CARBON DIOXIDE 48 mmol/L (22-29)
[2020-10-11 08:15] LABS: ABG HCO3 56 mmol/L (22-26); ABG PCO2 97 mmHg (35-45); ABG PH 7.37 (7.35-7.45); ABG PO2 83 mmHg (80-105); ABG TCO2 50
[2020-10-11] MEDS: DOCUSATE SODIUM LIQD 100 MG/10 ML UDC NG SCH ×2 (08:32→21:35)
[2020-10-11] MEDS: FAMOTIDINE 20 MG/2 ML VIAL IV SCH ×2 (08:32→18:35)
[2020-10-11] MEDS: KCL 20 MEQ PACKET/ ORAL SOLN NG SCH (08:32)
[2020-10-11] MEDS: EYE LUBRICANT OPTH OINT 3.5GM TUBE OP SCH (08:32)
[2020-10-11] MEDS: BALSAM PERU/CASTOR OIL 60 GM OINT...G. TP SCH (08:33)
[2020-10-11] MEDS: ASCORBIC ACID 500 MG TAB PO SCH ×2 (08:33→18:35)
[2020-10-11] MEDS: ACETAZOLAMIDE 250 MG TAB PO SCH ×2 (08:33→18:35)
[2020-10-11] MEDS: ZINC SULFATE 50 MG CAP PO SCH (08:33)
[2020-10-11 09:06] LABS: BAND NEUTROPHILS % (MANUAL) 1 %; EOSINOPHILS % (MANUAL) 1 % (0-7); MONOCYTES % (MANUAL) 7 % (3.4-9.0); MYELOCYTES % (MANUAL) 5 % (0-0); NEUTROPHILS % (MANUAL) 86 % (40-74); NUCLEATED RED BLOOD CELLS 1
[2020-10-11 09:07] LABS: ANISOCYTOSIS SLIGHT; POLYCHROMASIA FEW; STOMATOCYTES SLIGHT
[2020-10-11 09:08] LABS: PLATELET ESTIMATE ADEQUATE; PLATELET MORPHOLOGY COMMENT NORMAL; RBC MORPHOLOGY COMMENT ABNORMAL
[2020-10-11] MEDS: INSULIN GLARGINE 100 UNITS/ML VIAL SQ SCH (21:33)
[2020-10-11] MEDS: ROCURONIUM BROMIDE 250 ML IV SCH (21:35)
[2020-10-12] VITALS (24 sets, daily range): BP systolic 80–133; BP diastolic 58–86
[2020-10-12] MEDS: INSULIN LISPRO 100 UNIT/1 ML 3ML VIAL SQ SCH ×4 (00:35→18:00)
[2020-10-12] MEDS: MIDAZOLAM HCL 5MG/ML 10ML VIAL 100 ML IV PRN ×2 (00:35→14:15)
[2020-10-12] MEDS: ACETAMINOPHEN 325 MG TAB PO PRN (02:20)
[2020-10-12 06:24] LABS: BASOPHILS # (AUTO) 0.1 (0.0-0.1); BASOPHILS % 0.5 % (0.0-1.0); EOSINOPHILS # (AUTO) 0.2 (0.0-0.4); HEMATOCRIT 26.5 % (34.2-44.1); HEMOGLOBIN 7.6 g/dL (12.0-16.0); LYMPHOCYTES # (AUTO) 0.9 (1.0-3.2); LYMPHOCYTES % 3.8 % (18.0-39.1); MEAN CORPUSCULAR HEMOGLOBIN 28.5 pg (28-32); MEAN CORPUSCULAR HGB CONC 28.7 g/dL (31-35); MEAN CORPUSCULAR VOLUME 99.3 fL (81-99); MONOCYTES # (AUTO) 1.7 (0.2-0.8); MONOCYTES % 7.1 % (4.4-11.3); NEUTROPHILS # (AUTO) 19.4 (2.1-6.9); NEUTROPHILS % 81.3 % (38.7-80.0); PLATELET COUNT 308 x10e3/uL (140-360); RED BLOOD COUNT 2.67 x10e6/uL (3.6-5.1); RED CELL DISTRIBUTION WIDTH 17.6 % (11.7-14.4)
[2020-10-12] MEDS: LEVOTHYROXINE SODIUM 75 MCG TAB PO SCH (06:30)
[2020-10-12] MEDS: IPRATROPIUM BROMIDE 0.02% 2.5 ML NEB NEB SCH (07:00)
[2020-10-12 07:08] LABS: ALANINE AMINOTRANSFERASE 24 IU/L (0-55); ALBUMIN 2.1 g/dL (3.5-5.0); ALBUMIN/GLOBULIN RATIO 0.5 (0.8-2.0); ALKALINE PHOSPHATASE 102 IU/L (40-150); ANION GAP 12.9 mmol/L (8-16); BLOOD UREA NITROGEN 46 mg/dL (7-26); BUN/CREATININE RATIO 65 (6-25); CALCIUM 8.3 mg/dL (8.4-10.2); CHLORIDE 78 mmol/L (98-107); CREATININE, SERUM 0.71 mg/dL (0.57-1.11); EST GLOMERULAR FILTRATION RATE > 60 ML/MIN (60-); GLUCOSE 162 mg/dL (74-118); POTASSIUM 3.9 mmol/L (3.5-5.1); SODIUM 136 mmol/L (136-145)
[2020-10-12 07:19] LABS: CARBON DIOXIDE 49 mmol/L (22-29)
[2020-10-12] MEDS: KCL 20 MEQ PACKET/ ORAL SOLN NG SCH (09:31)
[2020-10-12] MEDS: FAMOTIDINE 20 MG/2 ML VIAL IV SCH ×2 (09:31→17:40)
[2020-10-12] MEDS: DOCUSATE SODIUM LIQD 100 MG/10 ML UDC NG SCH ×2 (09:31→21:00)
[2020-10-12] MEDS: ZINC SULFATE 50 MG CAP PO SCH (09:32)
[2020-10-12] MEDS: ASCORBIC ACID 500 MG TAB PO SCH ×2 (09:32→17:40)
[2020-10-12] MEDS: EYE LUBRICANT OPTH OINT 3.5GM TUBE OP SCH (09:32)
[2020-10-12] MEDS: ACETAZOLAMIDE 250 MG TAB PO SCH ×2 (09:32→17:40)
[2020-10-12] MEDS: BALSAM PERU/CASTOR OIL 60 GM OINT...G. TP SCH (09:32)
[2020-10-12] MEDS: ROCURONIUM BROMIDE 250 ML IV SCH (15:15)
[2020-10-12] MEDS: INSULIN GLARGINE 100 UNITS/ML VIAL SQ SCH (21:00)
[2020-10-13] VITALS (15 sets, daily range): BP systolic 64–135; BP diastolic 47–86
[2020-10-13] MEDS ORDERED: MIDAZOLAM HCL 50 MG in SODIUM CHLORIDE 0.9% 100 ML 90 ML IV PRN (04:30)
[2020-10-13] MEDS ORDERED: MIDAZOLAM HCL 5MG/ML 10ML VIAL 100 ML IV ONE (05:06)
[2020-10-13] MEDS: INSULIN LISPRO 100 UNIT/1 ML 3ML VIAL SQ SCH ×2 (07:24)
[2020-10-13] MEDS: FAMOTIDINE 20 MG/2 ML VIAL IV SCH (08:44)
[2020-10-13] MEDS: EYE LUBRICANT OPTH OINT 3.5GM TUBE OP SCH (08:44)
[2020-10-13] MEDS: DOCUSATE SODIUM LIQD 100 MG/10 ML UDC NG SCH (08:44)
[2020-10-13] MEDS: BALSAM PERU/CASTOR OIL 60 GM OINT...G. TP SCH (08:44)
[2020-10-13] MEDS: ZINC SULFATE 50 MG CAP PO SCH (08:44)
[2020-10-13] MEDS: KCL 20 MEQ PACKET/ ORAL SOLN NG SCH (08:44)
[2020-10-13] MEDS: ACETAZOLAMIDE 250 MG TAB PO SCH (08:44)
== END 2020-10-13 16:47 | disposition expired | DRG 853 ==
LOC: ER 00:15 → ERHOLD 03:06 → IMCU 23:07 → ICU 09-15 17:33
PROVIDERS: ADMIT Internal Medicine; ATTEND Internal Medicine
PROC: 02HV33Z Insertion of Infusion Device into Superior Vena Cava, Percutaneous Approach (ICD-10-PCS; 2020-09-12)
PROC: B548ZZA Ultrasonography of Superior Vena Cava, Guidance (ICD-10-PCS; 2020-09-12)
PROC: 3E0333Z Introduction of Anti-inflammatory into Peripheral Vein, Percutaneous Approach (ICD-10-PCS; 2020-09-12)
PROC: XW033E5 Introduction of Remdesivir Anti-infective into Peripheral Vein, Percutaneous Approach, New Technology Group 5 (ICD-10-PCS; 2020-09-12)
PROC: 5A1955Z Respiratory Ventilation, Greater than 96 Consecutive Hours (ICD-10-PCS; principal; 2020-09-13)
PROC: 0BH18EZ Insertion of Endotracheal Airway into Trachea, Via Natural or Artificial Opening Endoscopic (ICD-10-PCS; 2020-09-13)
PROC: 03HY32Z Insertion of Monitoring Device into Upper Artery, Percutaneous Approach (ICD-10-PCS; 2020-09-13)
PROC: 4A133B1 Monitoring of Arterial Pressure, Peripheral, Percutaneous Approach (ICD-10-PCS; 2020-09-13)
PROC: 4A133J1 Monitoring of Arterial Pulse, Peripheral, Percutaneous Approach (ICD-10-PCS; 2020-09-13)
PROC: 03HC33Z Insertion of Infusion Device into Left Radial Artery, Percutaneous Approach (ICD-10-PCS; 2020-09-14)
PROC: 0WCQ8ZZ Extirpation of Matter from Respiratory Tract, Via Natural or Artificial Opening Endoscopic (ICD-10-PCS; 2020-09-25)
PROC: 5A1D70Z Performance of Urinary Filtration, Intermittent, Less than 6 Hours Per Day (ICD-10-PCS; 2020-10-04)
PROC: 02HV33Z Insertion of Infusion Device into Superior Vena Cava, Percutaneous Approach (ICD-10-PCS; 2020-10-04)
PROC: B548ZZA Ultrasonography of Superior Vena Cava, Guidance (ICD-10-PCS; 2020-10-04)
PROC: 3E043XZ Introduction of Vasopressor into Central Vein, Percutaneous Approach (ICD-10-PCS; 2020-10-04)
PROC: 5A1D70Z Performance of Urinary Filtration, Intermittent, Less than 6 Hours Per Day (ICD-10-PCS; 2020-10-05)
PROC: 5A1D70Z Performance of Urinary Filtration, Intermittent, Less than 6 Hours Per Day (ICD-10-PCS; 2020-10-06)
PROC: 5A1D70Z Performance of Urinary Filtration, Intermittent, Less than 6 Hours Per Day (ICD-10-PCS; 2020-10-08)
PROC: 5A1D70Z Performance of Urinary Filtration, Intermittent, Less than 6 Hours Per Day (ICD-10-PCS; 2020-10-10)
PROC: 30243N1 Transfusion of Nonautologous Red Blood Cells into Central Vein, Percutaneous Approach (ICD-10-PCS; 2020-10-10)
DX: A41.89 Other specified sepsis (principal); U07.1 COVID-19; J96.01 Acute respiratory failure with hypoxia; J12.82 Pneumonia due to coronavirus disease 2019; R65.21 Severe sepsis with septic shock; E87.1 Hypo-osmolality and hyponatremia; E44.0 Moderate protein-calorie malnutrition; E87.3 Alkalosis; E87.0 Hyperosmolality and hypernatremia; Z66 Do not resuscitate; E03.9 Hypothyroidism, unspecified; E78.5 Hyperlipidemia, unspecified; R73.9 Hyperglycemia, unspecified; R94.5 Abnormal results of liver function studies; T38.0X5A Adverse effect of glucocorticoids and synthetic analogues, initial encounter; D50.0 Iron deficiency anemia secondary to blood loss (chronic); E87.6 Hypokalemia; E87.70 Fluid overload, unspecified; I78.8 Other diseases of capillaries; E88.09 Other disorders of plasma-protein metabolism, not elsewhere classified; E11.65 Type 2 diabetes mellitus with hyperglycemia
CPT/HCPCS: 36415; 36569; 36600; 71045; 71260; 74018; 76604; 80048; 80053; 80202; 81001; 82550; 82553; 82728; 82805; 82948; 83735; 83880; 84100; 84436; 84443; 84479; 84484; 85025; 85610; 85730; 86140; 86705; 86706; 86850; 86900; 86920; 87040; 87070; 87086; 87186; 87205; 87340; 93005; 93306; 94002; 94003; 96361; 96372; 99251; 99285; J0171; J0330; J0456; J0696; J1100; J1644; J1650; J1815; J1817; J1940; J2150; J2250; J3370; J3480; J7030; J7040; J7050; J7070; P9016; P9047; Q9967